=== PATIENT | female | born 1990 | race Caucasian/White ===

== ENCOUNTER 2016-04-11 21:02 | Emergency (ER) | payer SELFPAY ==
--- NOTE | 2016-04-11 21:59 | ER Document Report ---
ED Medical Screen (RME) - General Stated Complaint: EYE PAIN Time seen by provider: 21:57 Mode of Arrival: Ambulatory Information source: Patient Notes: 26-year-old noncontact lens wearer female woke up with a crusted right eyelashes with a itchy and watery right eye. She has children at home and so she wants to know if this pinkeye. She has a history of a right breast infection and her whole leaks pus since she had a baby 5 months ago. She is not breast-feeding. Not Taking any antibiotics right now. No fever. I have greeted and performed a rapid initial assessment of this patient. A comprehensive ED assessment, evaluation of the patient, analysis of test results , and completion of the medical decision making process will be conducted by additional ED providers. - Related Data Allergies/Adverse Reactions: Penicillins Allergy (Verified 03/05/11 20:03) Sulfa (Sulfonamide Antibiotics) Allergy (Verified 03/05/11 20:03) Past Medical History Pulmonary Medical History: Reports: Hx Asthma - Immunizations Immunizations up to date: Yes Hx Diphtheria, Pertussis, Tetanus Vaccination: Yes - 2010 Physical Exam - Vital signs Vitals: Temp Pulse Resp BP Pulse Ox 98.1 F 90 17 117/69 98 04/11/16 21:33 04/11/16 21:33 04/11/16 21:33 04/11/16 21:33 04/11/16 21:33 Course - Vital Signs Vital signs: Temp Pulse Resp BP Pulse Ox 98.1 F 90 17 117/69 98 04/11/16 21:33 04/11/16 21:33 04/11/16 21:33 04/11/16 21:33 04/11/16 21:33
--- NOTE | 2016-04-12 00:02 | ER Document Report ---
HPI - HPI Patient complains to provider of: eye irritation, nipple discharge Onset: Other - nipple discharge 4 months, eye irritation this am Severity: Mild Pain Level: 1 Context: Patient presents to the emergency department with complaints of her right eye irritating watery itchy and was crusted the same. Patient does have some discharge in the corner of her right eye. She denies vision problems. She does not wear contacts. No exposure to conjunctivitis that she knows. Patient also reports she has nipple discharge from her right breast. She reports she's had it for the past 4 months. She reports she had a baby 5 months ago and was told she had a a milk duct infection. She was treated with antibiotics. But she still has the discharge. She reports it hurts when she pushes on the area. Denies other symptoms such as fever vomiting diarrhea. Associated Symptoms: None Exacerbated by: Denies Relieved by: Denies Similar symptoms previously: Yes Recently seen / treated by doctor: No - REPRODUCTIVE LMP: 02-26-16 Reproductive: DENIES: : - DERM Skin Color: Normal Past Medical History - General Information source: Patient Last Menstrual Period: 02/26/16 irregular - Social History Smoking Status: Current Every Day Smoker Cigarette use (# per day): Yes Chew tobacco use (# tins/day): No Frequency of alcohol use: None Drug Abuse: None Lives with: Family Family History: Reviewed & Not Pertinent Patient has suicidal ideation: No Patient has homicidal ideation: No Pulmonary Medical History: Reports: Hx Asthma Renal/ Medical History: Denies: Hx Peritoneal Dialysis - Immunizations Immunizations up to date: Yes Hx Diphtheria, Pertussis, Tetanus Vaccination: Yes - 2010 Vertical Provider Document - CONSTITUTIONAL Agree With Documented VS: Yes Exam Limitations: No Limitations General Appearance: WD/WN, No Apparent Distress - INFECTION CONTROL TRAVEL OUTSIDE OF THE [place] IN LAST 30 DAYS: No - HEENT HEENT: Atraumatic, Normocephalic, PERRLA. negative: Conjuctival Injection - NECK Neck: Normal Inspection, Supple. negative: Lymphadenopathy-Left, Lymphadenopathy-Right - RESPIRATORY Respiratory: Breath Sounds Normal, Chest Non-Tender - reports nipple discharge out of right breast when squeezed. Patient squeezed her own breast and no discharge.. No erythema or warmth swelling or signs of infection noted Nipples intact no cracked or open wounds. O2 Sat by Pulse Oximetry: 98 - CARDIOVASCULAR Cardiovascular: Regular Rate - MUSCULOSKELETAL/EXTREMETIES Musculoskeletal/Extremeties: BONG, FROM - NEURO Level of Consciousness: Awake, Alert, Appropriate Motor/Sensory: No Motor Deficit - DERM Integumentary: Warm, Dry, No Rash Course - Re-evaluation Re-evalutation: 04/12/16 Patient will be treated for possible conjunctivitis with erythromycin. Patient was instructed on signs and symptoms of allergic reaction. Patient was also cautioned not to squeeze her breast. She was instructed to fu with a pcp or the health department. - Vital Signs Vital signs: Temp Pulse Resp BP Pulse Ox 98.1 F 90 17 117/69 98 04/11/16 21:33 04/11/16 21:33 04/11/16 21:33 04/11/16 21:33 04/11/16 21:33 Discharge - Discharge Clinical Impression: Irritation of right eye, Nipple discharge Condition: Stable Disposition: HOME, SELF-CARE Instructions: Family Physicians / Practices, Erythromycin (OM), Opthalmology, [facility] - [place], [place] Additional Instructions: *You have been evaluated for eye irritation, nipple discharge *Use eye ointment as prescribed- 1/2 inch ribbon to bottom lid three times a day for five days *Good hand washing- Do not reuse wash clothes or towels after wiping eyes *Follow up with an canvassing manager for recheck within one week *Follow up with the health department or a primary care provider for the nibble discharge *Return to ED for worsening condition, changes, needs
[2016-04-12] MEDS ORDERED: ERYTHROMYCIN 0.5% OPH OINTMENT 3.5 GM (ER DISP) OD ONE (00:21)
[2016-04-12 01:05] VITALS: BP 128/69
== END 2016-04-12 00:56 | disposition home or self-care (01) ==
LOC: ER 21:02
DX: N64.52 Nipple discharge (principal); H57.11 Ocular pain, right eye; F17.210 Nicotine dependence, cigarettes, uncomplicated
CPT/HCPCS: 99283

== ENCOUNTER 2016-05-11 23:57 | Emergency (ER) | payer SELFPAY ==
[2016-05-12 00:06] VITALS: BP 133/84
--- NOTE | 2016-05-12 00:25 | ER Document Report ---
ED General - General Chief Complaint: Abscess Stated Complaint: POSSIBLE ABSCESS Notes: Patient presents with 2 weeks of progressively worsening pain in her right axilla. Describes the area is a small lump that is getting progressively larger over the last 2 weeks. States she's had axillary abscesses in the past that required drainage. Pain is described as a constant, dull, throbbing pain. Touching the area worsens the pain. Nothing improves the pain. She has not seen her primary care doctor regarding today's concerns. No constitutional symptoms or fever. TRAVEL OUTSIDE OF THE [place] IN LAST 30 DAYS: No - Related Data Allergies/Adverse Reactions: Penicillins Allergy (Verified 05/12/16 00:06) Sulfa (Sulfonamide Antibiotics) Allergy (Verified 05/12/16 00:06) Past Medical History - Social History Smoking Status: Never Smoker Frequency of alcohol use: None Drug Abuse: None Lives with: Family Family History: Reviewed & Not Pertinent Patient has suicidal ideation: No Patient has homicidal ideation: No Pulmonary Medical History: Reports: Hx Asthma Renal/ Medical History: Denies: Hx Peritoneal Dialysis - Immunizations Immunizations up to date: Yes Hx Diphtheria, Pertussis, Tetanus Vaccination: Yes - 2010 Review of Systems - Review of Systems Notes: Constitutional: Negative for fever. Cardiovascular: Negative for chest pain. Respiratory: Negative for shortness of breath. Gastrointestinal: Negative for vomiting Musculoskeletal: Negative for back pain. Skin: Positive for axillary abscess Neurological: Negative for weakness or numbness. 10 point ROS negative except as marked above and in HPI. Physical Exam - Vital signs Vitals: Temp Pulse Resp BP Pulse Ox 98.4 F 94 16 133/84 H 97 05/12/16 00:01 05/12/16 00:01 05/12/16 00:01 05/12/16 00:01 05/12/16 00:01 Interpretation: Normal Notes: PHYSICAL EXAMINATION: GENERAL: Well-appearing, well-nourished and in no acute distress. HEAD: Atraumatic, normocephalic. EYES: sclera anicteric, conjunctiva are normal. ENT: Moist mucous membranes. NECK: Normal range of motion LUNGS: Normal work of breathing HEART: 2+ radial pulses bilaterally EXTREMITIES: no pitting or edema. No cyanosis. NEUROLOGICAL: No focal neurological deficits. Moves all extremities spontaneously and on command. PSYCH: Normal mood, normal affect. SKIN: Warm, Dry, normal turgor, 0.5cm X0.5cm abscess in the right axilla without surrounding erythema Course - Re-evaluation Re-evalutation: 05/12/16 01:07 Patient presents with a small right axillary abscess which was incised and drained the bedside without difficulty. No surrounding cellulitis. Patient is otherwise very well in appearance.At this time will discharge with return precautions and follow-up recommendations. Verbal discharge instructions given a the bedside and opportunity for questions given. Medication warnings reviewed. Patient is in agreement with this plan and has verbalized understanding of return precautions and the need for primary care follow-up in the next 24-72 hours. - Vital Signs Vital signs: Temp Pulse Resp BP Pulse Ox 98.4 F 94 16 133/84 H 97 05/12/16 00:01 05/12/16 00:01 05/12/16 00:01 05/12/16 00:01 05/12/16 00:01 Discharge - Discharge Clinical Impression: Axillary abscess Condition: Good Disposition: HOME, SELF-CARE Additional Instructions: You were seen for an abscess that required drainage. Please clean this area with soap and water twice daily and apply a topical antibiotic. Dress the area after each cleaning. Please return if you develop fever, vomiting, the pain at the site worsens, you notice spreading redness from the area, or you have any other symptoms that are concerning to you.
[2016-05-12] MEDS ORDERED: ACETAMINOPHEN 325 MG TABLET PO ONE (01:00)
[2016-05-12] MEDS ORDERED: ACETAMINOPHEN 325 MG TABLET ONE (01:03)
== END 2016-05-12 01:08 | disposition home or self-care (01) ==
LOC: ER 23:57
PROC: 0H9BXZZ Drainage of Right Upper Arm Skin, External Approach (ICD-10-PCS; principal; 2016-05-11)
DX: L02.411 Cutaneous abscess of right axilla (principal); Z88.0 Allergy status to penicillin; Z88.2 Allergy status to sulfonamides; J45.909 Unspecified asthma, uncomplicated
CPT/HCPCS: 99283

== ENCOUNTER 2016-05-29 20:15 | Emergency (ER) | payer SELFPAY ==
[2016-05-29] MEDS ORDERED: DOXYCYCLINE HYCLATE 100 MG TABLET PO ONE (23:19)
--- NOTE | 2016-05-29 23:19 | ER Document Report ---
ED Skin Rash/Insect Bite/Abscs - General Chief Complaint: Possible abscess under R arm Stated Complaint: PAIN UNDER RIGHT ARM Notes: The patient is a 26 yo old female, past medical history frequent right axilla abscesses, presents with mild pain and swelling below her right axilla. She had an abscess drained a few weeks ago, but cannot follow-up with the surgeon due to lack of insurance. She denies fevers, numbness, tingling or other wounds. TRAVEL OUTSIDE OF THE [place] IN LAST 30 DAYS: No - Related Data Allergies/Adverse Reactions: Penicillins Allergy (Verified 05/29/16 23:02) Sulfa (Sulfonamide Antibiotics) Allergy (Verified 05/29/16 23:02) Past Medical History - General Information source: Patient - Social History Smoking Status: Current Every Day Smoker Frequency of alcohol use: None Drug Abuse: None Family History: Reviewed & Not Pertinent Pulmonary Medical History: Reports: Hx Asthma Renal/ Medical History: Denies: Hx Peritoneal Dialysis Surgical Hx: Negative - Immunizations Immunizations up to date: Yes Hx Diphtheria, Pertussis, Tetanus Vaccination: Yes - 2010 Review of Systems - Review of Systems Notes: REVIEW OF SYSTEMS: CONSTITUTIONAL: -fevers, -chills EENT: -eye pain, -difficulty swallowing, -nasal congestion CARDIOVASCULAR:-chest pain, -syncope. RESPIRATORY: -cough, -SOB GASTROINTESTINAL: -abdominal pain, - nausea, -vomiting, -diarrhea GENITOURINARY: -dysuria, -hematuria MUSCULOSKELETAL: -back pain, -neck pain SKIN: +right axilla abscesses HEMATOLOGIC: -easy bruising or bleeding. LYMPHATIC: -swollen, enlarged glands. NEUROLOGICAL: -altered mental status or loss of consciousness, -headache, - neurologic symptoms PSYCHIATRIC: -anxiety, -depression. ALL OTHER SYSTEMS REVIEWED AND NEGATIVE. Physical Exam - Vital signs Vitals: Temp Pulse Resp BP Pulse Ox 98.6 F 104 H 19 131/83 H 97 05/29/16 20:31 05/29/16 20:31 05/29/16 20:31 05/29/16 20:31 05/29/16 20:31 - Notes Notes: PHYSICAL EXAMINATION: GENERAL: Well-appearing, well-nourished and in no acute distress. HEAD: Atraumatic, normocephalic. EYES: Pupils equal round and reactive to light, extraocular movements intact, sclera anicteric, conjunctiva are normal. ENT: nares patent, oropharynx clear without exudates. Moist mucous membranes. NECK: Normal range of motion, supple without lymphadenopathy LUNGS: Breath sounds clear to auscultation bilaterally and equal. No wheezes rales or rhonchi. HEART: Regular rate and rhythm without murmurs ABDOMEN: Soft, nontender, normoactive bowel sounds. No guarding, no rebound. No masses appreciated. EXTREMITIES: Normal range of motion, no pitting or edema. No cyanosis. NEUROLOGICAL: Cranial nerves grossly intact. Normal speech, normal gait. Normal sensory, motor, and reflex exams. PSYCH: Normal mood, normal affect. SKIN: Right axilla with 1 cm deep abscess and 0.5 cm deep abscess, mild erythema around abscesses Course - Re-evaluation Re-evalutation: Patient with deep abscesses in right axilla. Expressed to patient that due to the small size and depth of the abscesses that an I&D may not be very fruitful. Still offered an I&D, but patient says she would like to try warm compresses. Will also send her home with antibiotics. Given return instructions. - Vital Signs Vital signs: Temp Pulse Resp BP Pulse Ox 97.8 F 85 16 175/60 H 97 05/29/16 23:30 05/29/16 23:30 05/29/16 23:30 05/29/16 23:30 05/29/16 20:31 Discharge - Discharge Clinical Impression: Abscess of right axilla Condition: Good Disposition: HOME, SELF-CARE Additional Instructions: ABSCESS: You have an abscess (boil). This a pus-forming infection, usually due to staph. Some boils may be left to drain on their own, but most require lancing. From the time the tender lump first appears, it may be three or four days before the abscess is ready to amrita. Local heat and rest help at this stage of treatment. An antibiotic may prevent spread of the infection. Once the abscess is opened, packing may be placed into it. This is done so pus is not sealed inside by premature closure of the cavity. The packing will be removed at your follow-up visit or you may be advised to remove it yourself at home. Sometimes this packing must be replaced a few times during healing. The wound will heal with surprisingly little scar. Depending on the size and location of an abscess, healing can take one to four weeks. You may shower and wash the area around the incision site two or three times a day. Antibiotics may be prescribed, but are usually not necessary after an abscess has been drained. If you develop fever, chills, worsening pain, or increasing swelling in the area, call the doctor or return immediately. MRSA CELLULITIS: You have an infection of your skin and underlying soft tissues called cellulitis. This is due to bacteria, which can enter through any break in the skin, or even through an irritated hair follicle. Untreated, cellulitis will usually worsen and may form an abscess which requires draining. Although many bacterial organisms can cause cellulitis and abscess formations, the most likely bacteria is Methicillin-Resistant Staph Aureus, or MRSA for short. Antibiotics are required. Usually, warm packs or warm soaks, and elevation of the infected area are recommended. You should start getting better within 24 to 36 hours. Most infections respond quickly to the right medication. Follow-up care is important, however, to check for abscess (boil) formation, unsuspected foreign body, or resistant infection. If you develop fever, chills, or if the area of infection is becoming rapidly more swollen or painful, call the doctor at once. ORAL NARCOTIC MEDICATION: You have been given a prescription for pain control. This medication is a narcotic. It's best taken with food, as nausea can result if taken on an empty stomach. Don't operate machinery or drive within six hours of taking this medication. Do not combine this medicine with alcohol, or with any medication which can cause sedation (such as cold tablets or sleeping pills) unless you get permission from the physician. Narcotics tend to cause constipation. If possible, drink plenty of fluids and eat a diet high in fiber and fruits. FOLLOW-UP CARE: Most simple abscesses will not require a follow up visit. If you had packing placed in the abscess, remove it as instructed by the physician. If you have been referred to a physician for follow-up care, call the physicians office for an appointment as you were instructed or within the next two days. If you experience worsening or a significant change in your symptoms, return to the Emergency Department at any time for re-evaluation. Prescriptions: Acetaminophen with Codeine [Tylenol #3 Tablet] 1 each PO Q4HP PRN #10 tablet PRN Reason: Doxycycline Hyclate 100 mg PO BID #14 capsule Referrals: GABRIELA SNYDER MD [ACTIVE STAFF] - Follow up as needed
[2016-05-30] MEDS: ACETAMINOPHEN WITH CODEINE #3 TABLET PO ONE (00:10)
[2016-05-30 00:18] VITALS: BP 175/60
== END 2016-05-30 00:18 | disposition home or self-care (01) ==
LOC: ER 20:15
DX: L02.411 Cutaneous abscess of right axilla (principal); M79.601 Pain in right arm; F17.200 Nicotine dependence, unspecified, uncomplicated; Z88.0 Allergy status to penicillin; Z88.2 Allergy status to sulfonamides
CPT/HCPCS: 99282

== ENCOUNTER 2016-06-11 20:24 | Emergency (ER) | payer SELFPAY ==
--- NOTE | 2016-06-11 20:51 | ER Document Report ---
ED Medical Screen (RME) - General Chief Complaint: Chest Pain Stated Complaint: CHEST PAIN Time seen by provider: 20:50 Mode of Arrival: Ambulatory Information source: Patient Notes: This is a 26-year-old female that presents to the emergency room with sharp shooting pain behind her eyes and in her neck sometimes in her chest. She denies any shortness of breath. She is on control and she does smoke. She denies any calf tenderness. She states it's been going on constantly for the past 3 days. She denies any exertional discomfort. The symptoms seem to be worse with positional changes. TRAVEL OUTSIDE OF THE [place] IN LAST 30 DAYS: No - Related Data Allergies/Adverse Reactions: Penicillins Allergy (Verified 06/11/16 20:37) Sulfa (Sulfonamide Antibiotics) Allergy (Verified 06/11/16 20:37) Past Medical History Pulmonary Medical History: Reports: Hx Asthma Renal/ Medical History: Denies: Hx Peritoneal Dialysis - Immunizations Immunizations up to date: Yes Hx Diphtheria, Pertussis, Tetanus Vaccination: Yes - 2010 Physical Exam - Vital signs Vitals: Temp Pulse Resp BP Pulse Ox 98.2 F 109 H 16 129/81 H 97 06/11/16 20:34 06/11/16 20:34 06/11/16 20:34 06/11/16 20:34 06/11/16 20:34 Course - Vital Signs Vital signs: Temp Pulse Resp BP Pulse Ox 98.2 F 109 H 16 129/81 H 97 06/11/16 20:34 06/11/16 20:34 06/11/16 20:34 06/11/16 20:34 06/11/16 20:34
[2016-06-11 21:11] LABS: ABSOLUTE BASOPHILS # (AUTO) 0.1 10^3/uL (0.0-0.2); ABSOLUTE EOSINOPHILS # (AUTO) 0.1 10^3/uL (0.0-0.6); ABSOLUTE LYMPHOCYTES (AUTO) 3.4 10^3/uL (0.5-4.7); ABSOLUTE MONOCYTES (AUTO) 0.6 10^3/uL (0.1-1.4); ABSOLUTE NEUT (AUTO) 8.8 10^3/uL (1.7-8.2); BASOPHILS % (AUTO) 0.7 % (0-2); EOSINOPHILS % (AUTO) 0.8 % (0-6); HEMATOCRIT 42.8 % (36.0-47.0); HEMOGLOBIN 14.6 g/dL (12.0-15.5); LYMPHOCYTES % (AUTO) 25.9 % (13-45); MEAN CORPUSCULAR VOLUME 85 fl (80-97); MONOCYTES % (AUTO) 4.7 % (3-13); RED BLOOD COUNT 5.02 10^6/uL (3.72-5.28); RED CELL DISTRIBUTION WIDTH 15.2 % (11.5-14.0); SEGMENTED NEUTROPHILS % (AUTO) 67.9 % (42-78)
[2016-06-11 21:15] LABS: APPEARANCE,URINE CLEAR; BILIRUBIN,URINE NEGATIVE (NEGATIVE); GLUCOSE, URINE NEGATIVE (NEGATIVE); KETONES,URINE NEGATIVE (NEGATIVE); LEUKOCYTE ESTERASE,URINE NEGATIVE (NEGATIVE); NITRITE,URINE NEGATIVE (NEGATIVE); PROTEIN,URINE NEGATIVE (NEGATIVE); URINE SPECIFIC GRAVITY 1.019; UROBILINOGEN,URINE NEGATIVE mg/dL (<2.0)
[2016-06-11 21:30] LABS: ALANINE AMINOTRANSFERASE 33 U/L (9-52); ALBUMIN 4.3 g/dL (3.5-5.0); ALKALINE PHOSPHATASE 76 U/L (38-126); ANION GAP 14 (5-19); ASPARTATE AMINO TRANSFERASE 19 U/L (14-36); BILIRUBIN,DIRECT 0.2 mg/dL (0.0-0.4); BILIRUBIN,TOTAL 0.2 mg/dL (0.2-1.3); BLOOD UREA NITROGEN 13 mg/dL (7-20); CALCIUM 10.3 mg/dL (8.4-10.2); CARBON DIOXIDE 24 mmol/L (22-30); CHLORIDE 104 mmol/L (98-107); CREATININE RESULT 0.64 mg/dL (0.52-1.25); GLUCOSE 107 mg/dL (75-110); POTASSIUM 4.1 mmol/L (3.6-5.0); SODIUM 142.2 mmol/L (137-145); TOTAL PROTEIN 6.9 g/dL (6.3-8.2)
--- NOTE | 2016-06-11 22:01 | ER Document Report ---
ED General - General Chief Complaint: Chest Pain Stated Complaint: CHEST PAIN Mode of Arrival: Ambulatory Notes: Patient is a 26 old female presents for complaint of a few different symptoms have been on going for 3 days. Patient says that she will have sudden "jolts" of sharp pain that occurred going up her neck and back behind her eye. She says symptoms occur with certain movements of her head. Says sometimes it can occur randomly. She also says sometimes the pain will radiate back down into her right upper chest. She denies any injuries or traumas. She says that once or twice she was talking "out of her head" to her . No focal weakness or numbness. No vomiting. No fevers. No infections. No other complaints this time. She never had these symptoms before. TRAVEL OUTSIDE OF THE [place] IN LAST 30 DAYS: No - Related Data Allergies/Adverse Reactions: Penicillins Allergy (Verified 06/11/16 20:37) Sulfa (Sulfonamide Antibiotics) Allergy (Verified 06/11/16 20:37) Past Medical History - General Information source: Patient - Social History Smoking Status: Never Smoker Frequency of alcohol use: None Drug Abuse: None Family History: Reviewed & Not Pertinent Patient has suicidal ideation: No Patient has homicidal ideation: No Pulmonary Medical History: Reports: Hx Asthma Renal/ Medical History: Denies: Hx Peritoneal Dialysis - Immunizations Immunizations up to date: Yes Hx Diphtheria, Pertussis, Tetanus Vaccination: Yes - 2010 Review of Systems - Review of Systems Notes: My Normal Review Basic REVIEW OF SYSTEMS: CONSTITUTIONAL : Denies fever, chills, or sweats. Denies recent illness. EENT: Denies eye, ear, throat, or mouth pain or symptoms. Denies nasal or sinus congestion. RESPIRATORY: Denies cough, cold, or chest congestion. Denies shortness of breath, difficulty breathing, or wheezing. GASTROINTESTINAL: Denies abdominal pain. Denies nausea, vomiting, or diarrhea. Denies constipation. Last BM: MUSCULOSKELETAL: Neck pain SKIN: Denies rash or skin lesions. HEMATOLOGIC : Denies easy bruising or bleeding. LYMPHATIC: Denies swollen, enlarged glands. NEUROLOGICAL: Denies altered mental status or loss of consciousness. Pain radiating up neck to behind the eyes.. Denies weakness or paralysis or loss of use of either side. Denies problems with gait or speech. Denies sensory or motor loss. ALL OTHER SYSTEMS REVIEWED AND NEGATIVE. Physical Exam - Vital signs Vitals: Temp Pulse Resp BP Pulse Ox 98.2 F 109 H 16 129/81 H 97 06/11/16 20:34 06/11/16 20:34 06/11/16 20:34 06/11/16 20:34 06/11/16 20:34 - Notes Notes: General Appearance: Well nourished, alert, cooperative, no acute distress, no obvious discomfort. Well-appearing. Vitals: reviewed, See vital signs table. Head: no swelling or tenderness to the head Eyes: PERRL, EOMI, Conjuctiva clear Mouth: No decreasd moisturey Neck: Supple, no neck tenderness, I cannot reproduce patient's pain with movement of the neck or palpation. Lungs: No wheezing, No rales, No rhonci, No accessory muscle use, good air exchange bilaterally. Heart: Normal rate, Regular rythm, No murmur, no rub Chest wall: No pain to palpation of the chest wall. Abdomen: Normal BS, soft, No rigidity, No abdominal tenderness, No guarding, no rebound, no abdominal masses, no organomegaly Extremities: strength 5/5 in all extremities, good pulses in all extremities, no swelling or tenderness in the extremities, no edema. Skin: warm, dry, appropriate color, no rash Neuro: speech clear, oriented x 3, normal affect, responds appropriately to questions. Cranial nerves II through XII are intact. Distal sensation intact. Normal gait. Normal Romberg. Course - Vital Signs Vital signs: Temp Pulse Resp BP Pulse Ox 98.2 F 109 H 16 129/81 H 97 06/11/16 20:34 06/11/16 20:34 06/11/16 20:34 06/11/16 20:34 06/11/16 20:34 - Laboratory Result Diagrams: 06/11/16 20:55 06/11/16 20:55 Laboratory results interpreted by me: 06/11/16 06/11/16 06/11/16 20:55 20:55 21:00 WBC 13.0 H RDW 15.2 H Absolute Neutrophils 8.8 H Calcium 10.3 H Urine Blood SMALL H - EKG Interpretation by Me Additional EKG results interpreted by me: 06/11/16 22:01 EKG is reviewed and interpreted by me. EKG shows sinus tachycardia with rate of [address] segment elevation or depression. Ischemic T-wave inversions. [place] interval, QRS duration, QTC also are within normal range. No old EKG available for comparison. - Transfer of Care Notes: 06/11/16 23:30 Exact cause of the patient's pain is not clear. Seems to be musculoskeletal or possibly pinched nerve being that it is sudden jolts of pain that are sometimes gas me by certain movements. I did obtain a CTA of the neck because the patient had mentioned that at times she does feel dizzy at times has had episodes where she feels like she is not talking appropriately. CTA is negative. Is no evidence of vertebral artery dissection. She looks well. She is neurologically intact at this time. I feel she is safe to be discharged home. I encourage her to return to ER shows worsening of her symptoms or feels unwell. Patient agrees with plan will be discharged home. Dictation of this chart was performed using voice recognition software; therefore, there may be some unintended grammatical errors. Discharge - Discharge Clinical Impression: Neck pain Chest pain Qualifiers: Chest pain type: unspecified Qualified Code(s): R07.9 - Chest pain, unspecified Condition: Good Disposition: HOME, SELF-CARE Additional Instructions: Please follow up closely with your primary care doctor within 1 week for reevaluation. Please return to the ER immediately if you have worsening of your symptoms, fevers, continuous pain, or any weakness or numbness into her arms or legs.
[2016-06-11 23:57] VITALS: BP 122/74
== END 2016-06-11 23:57 | disposition home or self-care (01) ==
LOC: ER 20:24
DX: R07.9 Chest pain, unspecified (principal); M54.2 Cervicalgia; R51 Headache; R42 Dizziness and giddiness; J45.909 Unspecified asthma, uncomplicated; R00.0 Tachycardia, unspecified; Z88.0 Allergy status to penicillin; Z88.2 Allergy status to sulfonamides
CPT/HCPCS: 36415; 70496; 70498; 71020; 80053; 81001; 84702; 85025; 99285

== ENCOUNTER 2016-08-16 00:51 | Emergency (ER) | payer SELFPAY ==
[2016-08-16] MEDS ORDERED: LIDOCAINE 5% (700 MG) TRANSDERMAL ADH..PATCH TP ONE (07:04)
[2016-08-16] MEDS ORDERED: DOXYCYCLINE HYCLATE 100 MG TABLET PO ONE (07:06)
--- NOTE | 2016-08-16 07:08 | ER Document Report ---
ED General - General Chief Complaint: Abscess Stated Complaint: POSSIBLE ABSCESS Time Seen by Provider: 08/16/16 06:10 TRAVEL OUTSIDE OF THE [place] IN LAST 30 DAYS: No - HPI Patient complains to provider of: Possible abscess Notes: Patient coming in for evaluation of possible abscess on the right lower quadrant of the abdomen. Patient states present for the last 3 days with some drainage. Patient denies any instrumentation of the area by herself denies fevers chills nausea vomiting. Patient is well-hydrated nontoxic looking upon my evaluation - Related Data Allergies/Adverse Reactions: Penicillins Allergy (Verified 08/16/16 00:58) Sulfa (Sulfonamide Antibiotics) Allergy (Verified 08/16/16 00:58) Past Medical History - Social History Smoking Status: Unknown if Ever Smoked Family History: Reviewed & Not Pertinent Pulmonary Medical History: Reports: Hx Asthma Renal/ Medical History: Denies: Hx Peritoneal Dialysis - Immunizations Immunizations up to date: Yes Hx Diphtheria, Pertussis, Tetanus Vaccination: Yes - 2010 Review of Systems - Review of Systems Constitutional: No symptoms reported EENT: No symptoms reported Cardiovascular: No symptoms reported Respiratory: No symptoms reported Gastrointestinal: No symptoms reported Genitourinary: No symptoms reported Female Genitourinary: No symptoms reported Musculoskeletal: No symptoms reported Skin: Other - abscess Hematologic/Lymphatic: No symptoms reported Neurological/Psychological: No symptoms reported -: Yes All other systems reviewed and negative Physical Exam - Vital signs Vitals: Temp Pulse Resp BP Pulse Ox 98.3 F 106 H 20 126/69 H 94 08/16/16 00:57 08/16/16 00:57 08/16/16 00:57 08/16/16 00:57 08/16/16 00:57 Interpretation: Normal - General General appearance: Appears well, Alert - HEENT Head: Normocephalic, Atraumatic Eyes: Normal Pupils: PERRL - Respiratory Respiratory status: No respiratory distress Chest status: Nontender Breath sounds: Normal Chest palpation: Normal - Cardiovascular Rhythm: Regular Heart sounds: Normal auscultation Murmur: No - Abdominal Inspection: Normal Distension: No distension Bowel sounds: Normal Tenderness: Nontender Organomegaly: No organomegaly Notes: Patient with an area on the left lower quadrant raised erythematous looks to be almost like a keloid formation however erythema concerning for an abscess. Bedside ultrasound did not show any drainable fluid - Back Back: Normal, Nontender - Extremities General upper extremity: Normal inspection, Nontender, Normal color, Normal ROM , Normal temperature General lower extremity: Normal inspection, Nontender, Normal color, Normal ROM , Normal temperature, Normal weight bearing. No: Flavio's sign - Neurological Neuro grossly intact: Yes Cognition: Normal Orientation: AAOx4 Tisha Coma Scale Eye Opening: Spontaneous [place] Coma Scale Verbal: Oriented [place] Coma Scale Motor: Obeys Commands Tisha Coma Scale Total: 15 Speech: Normal Motor strength normal: LUE, RUE, LLE, RLE Sensory: Normal - Psychological Associated symptoms: Normal affect, Normal mood - Skin Skin Temperature: Warm Skin Moisture: Dry Skin Color: Normal Course - Re-evaluation Re-evalutation: 08/16/16 12:31 Patient with possible keloid formation scar tissue versus skin infection on the right lower quadrant of the abdomen. There is no drainable abscess at this time will cover the patient with 7 days of doxycycline. Patient will be discharged home to follow primary care physician. - Vital Signs Vital signs: Temp Pulse Resp BP Pulse Ox 97.7 F 75 17 119/76 98 08/16/16 07:31 08/16/16 07:31 08/16/16 07:31 08/16/16 07:31 08/16/16 07:31 Discharge - Discharge Clinical Impression: Skin infection Condition: Good Disposition: HOME, SELF-CARE Instructions: Cellulitis ([facility]) Additional Instructions: There is no signs of any abscess formation more likely you have a Small area of cellulitiswe will treat this with doxycycline for the next 7 days take medication as prescribed Tylenol Motrin for pain control. May place warm compresses on the area to as well. Prescriptions: Doxycycline Hyclate 100 mg PO BID #14 capsule Forms: Return to Work
[2016-08-16 07:34] VITALS: BP 119/76
== END 2016-08-16 07:36 | disposition home or self-care (01) ==
LOC: ER 00:51
DX: L08.9 Local infection of the skin and subcutaneous tissue, unspecified (principal); J45.909 Unspecified asthma, uncomplicated; Z88.2 Allergy status to sulfonamides; Z88.0 Allergy status to penicillin
CPT/HCPCS: 99282

== ENCOUNTER 2016-10-01 09:30 | Emergency (ER) | payer SELFPAY ==
--- NOTE | 2016-10-01 09:42 | ER Document Report ---
HPI - HPI Patient complains to provider of: right groin abscess Onset: Last week Onset/Duration: Gradual Pain Level: 3 Context: 26-year-old female with a history of abscess but not MRSA is complaining of increased swelling and pain. No fever or chills. Associated Symptoms: None Exacerbated by: Movement Relieved by: Denies - ROS ROS below otherwise negative: Yes Systems Reviewed and Negative: Yes All other systems reviewed and negative - REPRODUCTIVE Reproductive: DENIES: : - DERM Skin Color: Normal Past Medical History - General Information source: Patient - Social History Smoking Status: Unknown if Ever Smoked Frequency of alcohol use: None Drug Abuse: None Lives with: Family Family History: Reviewed & Not Pertinent Patient has suicidal ideation: No Patient has homicidal ideation: No - Medical History Medical History: Negative Pulmonary Medical History: Reports: Hx Asthma Renal/ Medical History: Denies: Hx Peritoneal Dialysis Surgical Hx: Negative - Immunizations Immunizations up to date: Yes Hx Diphtheria, Pertussis, Tetanus Vaccination: Yes - 2010 [employer] Provider Document - CONSTITUTIONAL Agree With Documented VS: Yes Exam Limitations: No Limitations General Appearance: No Apparent Distress - INFECTION CONTROL TRAVEL OUTSIDE OF THE [place] IN LAST 30 DAYS: No - HEENT HEENT: Normocephalic - NECK Neck: Supple - RESPIRATORY O2 Sat by Pulse Oximetry: 97 - MUSCULOSKELETAL/EXTREMETIES Musculoskeletal/Extremeties: NAYA WOODY - NEURO Level of Consciousness: Awake, Alert, Appropriate - DERM Integumentary: Abscess - right inquinal fold, fluctuant, not red Course - Vital Signs Vital signs: Temp Pulse Resp BP Pulse Ox 98.0 F 103 H 20 131/84 H 97 10/01/16 09:33 10/01/16 09:33 10/01/16 09:33 10/01/16 09:33 10/01/16 09:33 Procedures - Incision and Drainage Right Groin Time completed: 10:43 Type: Simple Anesthetic type: 1% Lidocaine mL's of anesthetic: 3 Blade size: 11 I&D procedure: Betadine prep applied Incision Method: Incision made by scalpel Amount/type of drainage: large pus Discharge - Discharge Clinical Impression: Right groin abscess I&D Condition: Good Disposition: HOME, SELF-CARE Instructions: Acetaminophen, Use of [id number]-Isb-Lgwmerc Ibuprofen ([facility]), Post Incision and Drainage, Ultram ([facility]) Additional Instructions: warm compress keep the original dressing in place for 2 days to er if any worsening of the symptoms, fever, any concerns Please complete the patient satisfaction survey if you get one, and return it.. If you do not receive a survey, then you can go to the [facility] website, [email or web address] and place your comments about your very good care. Thank you very much. It was a pleasure being your medical provider today. Prescriptions: Clindamycin HCl [Cleocin 150 mg Capsule] 300 mg PO TID #42 capsule Tramadol HCl [Ultram 50 mg Tablet] 50 mg PO ASDIR PRN #15 tablet PRN Reason: Forms: Return to Work
[2016-10-01] MEDS ORDERED: LIDOCAINE 4%/TETRACAINE 0.5%/EPI 0.18% 5 ML TOPICAL SOLN TOP ONE (09:50)
[2016-10-01] MEDS ORDERED: IBUPROFEN 800 MG TABLET PO ONE (09:51)
[2016-10-01] MEDS ORDERED: CLINDAMYCIN HCL 150 MG CAPSULE PO ONE (09:51)
[2016-10-01 11:01] VITALS: BP 121/90
== END 2016-10-01 10:58 | disposition home or self-care (01) ==
LOC: ER 09:30
PROC: 0H97XZZ Drainage of Abdomen Skin, External Approach (ICD-10-PCS; principal; 2016-10-01)
DX: L02.214 Cutaneous abscess of groin (principal)
CPT/HCPCS: 99283; 10060; J3490

== ENCOUNTER 2016-10-07 12:38 | Emergency (ER) | payer BC ==
--- NOTE | 2016-10-07 13:06 | ER Document Report ---
ED General - General Chief Complaint: Flu Symptoms Stated Complaint: FLU LIKE SYMPTOMS Time Seen by Provider: 10/07/16 12:57 Mode of Arrival: Ambulatory Information source: Patient Notes: 26-year-old female presents with complaints of diarrhea congestion productive cough green sputum with generalized body aches and sore throat. Patient denies any urinary complaints denies any abdominal pain, denies any DVT or PE risk factors TRAVEL OUTSIDE OF THE [place] IN LAST 30 DAYS: No - HPI Onset: Last week Onset/Duration: Persistent Quality of pain: Achy Severity: Mild Pain Level: 1 Associated symptoms: Productive cough, Fever, Sinus pain/drainage Exacerbated by: Denies Relieved by: Denies Similar symptoms previously: No Recently seen / treated by doctor: No - Related Data Allergies/Adverse Reactions: Penicillins Allergy (Verified 10/01/16 09:33) Sulfa (Sulfonamide Antibiotics) Allergy (Verified 10/01/16 09:33) Past Medical History - Social History Smoking Status: Current Every Day Smoker Cigarette use (# per day): Yes Chew tobacco use (# tins/day): No Smoking Education Provided: Yes - Patient counselled regarding cessation for 4 minutes Patient counselled reg Frequency of alcohol use: Rare Drug Abuse: None Family History: Reviewed & Not Pertinent Pulmonary Medical History: Reports: Hx Asthma Renal/ Medical History: Denies: Hx Peritoneal Dialysis Surgical Hx: Negative - Immunizations Immunizations up to date: Yes Hx Diphtheria, Pertussis, Tetanus Vaccination: Yes - 2010 Review of Systems - Review of Systems Notes: REVIEW OF SYSTEMS: CONSTITUTIONAL : Denies fever, chills, or sweats. Denies recent illness. EENT: Admits nasal congestion CARDIOVASCULAR: Denies chest pain. Denies palpitations or racing or irregular heart beat. Denies ankle edema. RESPIRATORY: Admits to productive cough GASTROINTESTINAL: Admits to diarrhea GENITOURINARY: Denies difficulty urinating, painful urination, burning, frequency, blood in urine, or discharge. MUSCULOSKELETAL: Denies back or neck pain or stiffness. Denies joint pain or swelling. SKIN: Denies rash, lesions or sores. HEMATOLOGIC : Denies easy bruising or bleeding. LYMPHATIC: Denies swollen, enlarged glands. NEUROLOGICAL: Denies confusion or altered mental status. Denies passing out or loss of consciousness. Denies dizziness or lightheadedness. Denies headache. Denies weakness or paralysis or loss of use of either side. Denies problems with gait or speech. Denies sensory loss, numbness, or tingling. Denies seizures. PSYCHIATRIC: Denies anxiety or stress. Denies depression, suicidal ideation, or homicidal ideation. ALL OTHER SYSTEMS REVIEWED AND NEGATIVE. Dictation was performed using [employer] voice recognition software PHYSICAL EXAMINATION: GENERAL: Well-appearing, well-nourished and in no acute distress. HEAD: Atraumatic, normocephalic. Frontal sinus tenderness on palpation EYES: Pupils equal round and reactive to light, extraocular movements intact, sclera anicteric, conjunctiva are normal. ENT: Nares patent, oropharynx clear without exudates. Moist mucous membranes. NECK: Normal range of motion, supple without lymphadenopathy LUNGS: Breath sounds clear to auscultation bilaterally and equal. No wheezes rales or rhonchi. HEART: Regular rate and rhythm without murmurs ABDOMEN: Soft, nontender, nondistended abdomen. No guarding, no rebound. No masses appreciated. Musculoskeletal: Normal range of motion, no pitting or edema. No cyanosis. NEUROLOGICAL: Cranial nerves grossly intact. Normal speech, normal gait. Normal sensory, motor exams PSYCH: Normal mood, normal affect. SKIN: Warm, Dry, normal turgor, no rashes or lesions noted. Physical Exam - Vital signs Vitals: Temp Pulse Resp BP Pulse Ox 98.6 F 114 H 16 136/83 H 97 10/07/16 12:39 10/07/16 12:39 10/07/16 12:39 10/07/16 12:39 10/07/16 12:39 Course - Re-evaluation Re-evalutation: 10/07/16 13:59 On evaluation patient's in no distress was initially tachycardic which has since resolved. Patient labwork imaging noted no acute abnormality however I believe patient may have a sinus infection given that is ongoing now for a couple weeks has been tender with thick nasal drainage After performing a Medical Screening Examination, I estimate there is LOW risk for ACUTE CORONARY SYNDROME, RESPIRATORY FAILURE, SEPSIS OR MENINGITIS, thus I consider the discharge disposition reasonable. I have reevaluated this patient multiple times and no significant life threatening changes are noted. The patient and I have discussed the diagnosis and risks, and we agree with discharging home with close follow-up. We also discussed returning to the Emergency Department immediately if new or worsening symptoms occur. We have discussed the symptoms which are most concerning (e.g., changing or worsening pain, trouble swallowing or breathing, neck stiffness, fever) that necessitate immediate return. - Vital Signs Vital signs: Temp Pulse Resp BP Pulse Ox 98.6 F 114 H 16 136/83 H 97 10/07/16 12:39 10/07/16 12:39 10/07/16 12:39 10/07/16 12:39 10/07/16 12:39 Discharge - Discharge Clinical Impression: Body aches, Encounter for smoking cessation counseling Sinusitis Qualifiers: Sinusitis location: frontal Chronicity: acute Recurrence: non-recurrent Qualified Code(s): J01.10 - Acute frontal sinusitis, unspecified Condition: Stable Disposition: HOME, SELF-CARE Instructions: Sinusitis ([facility]) Additional Instructions: Follow up with your physician tomorrow for further care or return to the ED IMMEDIATELY if symptoms worsen or new concerns occur. If you cannot afford to follow up with your primary care physician a list of low cost clinics have been provided at the end of your discharge papers as well. Prescriptions: Azithromycin 250 mg PO ASDIR PRN #6 tablet PRN Reason: Forms: Smoking Cessation Education
--- NOTE | 2016-10-07 13:29 | RADIOLOGY REPORT (SQ) ---
EXAM DESCRIPTION: CHEST PA/LAT COMPLETED DATE/TIME: 10/07/2016 1:21 pm REASON FOR STUDY: cough productive COMPARISON: 06/11/2016. EXAM PARAMETERS: NUMBER OF VIEWS: two views TECHNIQUE: Digital Frontal and Lateral radiographic views of the chest acquired. RADIATION DOSE: NA LIMITATIONS: none FINDINGS: LUNGS AND PLEURA: No opacities, masses or pneumothorax. No pleural effusion. MEDIASTINUM AND HILAR STRUCTURES: No masses or contour abnormalities. HEART AND VASCULAR STRUCTURES: Heart normal size. No evidence for failure. BONES: No acute findings. HARDWARE: None in the chest. OTHER: No other significant finding. IMPRESSION: NO SIGNIFICANT RADIOGRAPHIC FINDING IN THE CHEST. TECHNICAL DOCUMENTATION: JOB ID: [id number] [employer]- All Rights Reserved
[2016-10-07 13:40] LABS: APPEARANCE,URINE CLEAR; BILIRUBIN,URINE NEGATIVE (NEGATIVE); GLUCOSE, URINE NEGATIVE (NEGATIVE); KETONES,URINE NEGATIVE (NEGATIVE); LEUKOCYTE ESTERASE,URINE NEGATIVE (NEGATIVE); NITRITE,URINE NEGATIVE (NEGATIVE); PROTEIN,URINE NEGATIVE (NEGATIVE); URINE SPECIFIC GRAVITY 1.004; UROBILINOGEN,URINE NEGATIVE mg/dL (<2.0)
[2016-10-07 14:00] VITALS: BP 124/80
== END 2016-10-07 14:04 | disposition home or self-care (01) ==
LOC: ER 12:38
DX: J01.10 Acute frontal sinusitis, unspecified (principal); M79.1 Myalgia; R19.7 Diarrhea, unspecified; R00.0 Tachycardia, unspecified; F17.210 Nicotine dependence, cigarettes, uncomplicated; Z88.0 Allergy status to penicillin; Z88.2 Allergy status to sulfonamides
CPT/HCPCS: 71020; 81001; 81025; 87070; 87804; 87880; 99283; 99406

== ENCOUNTER 2016-12-17 18:29 | Emergency (ER) | payer BC ==
[2016-12-17 18:47] VITALS: BP 133/79
[2016-12-17] MEDS ORDERED: CYCLOBENZAPRINE HCL 10 MG TABLET PO ONE (19:17)
[2016-12-17] MEDS ORDERED: KETOROLAC TROMETHAMINE INJ/PF 30 MG/1 ML SDV IM ONE (19:17)
--- NOTE | 2016-12-17 19:18 | ER Document Report ---
HPI - HPI Patient complains to provider of: sciatica Pain Level: 3 Context: Patient is a 26-year-old female who presents emergency department complaining of left sciatica. Patient states that she was evaluated here 3 days ago and sent home on naproxen and prednisone which she has been taking as instructed. Otherwise she denies any recent fall, trauma, new injury, numbness or tingling in her lower extremity, saddle anesthesia, urinary or stool incontinence. She states she only notices it when she has heavy lifting or holding her son on her left side. 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 - CARDIOVASCULAR Cardiovascular: DENIES: Chest pain - REPRODUCTIVE Reproductive: DENIES: : - DERM Skin Color: Normal Past Medical History - Social History Smoking Status: Smoker,Current Status Unk Family History: Reviewed & Not Pertinent Patient has suicidal ideation: No Patient has homicidal ideation: No Pulmonary Medical History: Reports: Hx Asthma Renal/ Medical History: Denies: Hx Peritoneal Dialysis - Immunizations Immunizations up to date: Yes Hx Diphtheria, Pertussis, Tetanus Vaccination: Yes - 2010 [facility] Provider Document - CONSTITUTIONAL Notes: PHYSICAL EXAM GENERAL: Alert, interacts well. EXTREMITIES: Moves all 4 extremities spontaneously. No edema, radial and dorsalis pedis pulses 2/4 bilaterally. No cyanosis. Back: No spinous process tenderness, deformities, step-offs. Pain reproducible palpation of the left paralumbar musculature and left gluteal muscle group. NEUROLOGICAL: Alert and oriented x4. Normal speech. PSYCH: Normal affect, normal mood. SKIN: Warm, dry, normal turgor. No rashes or lesions noted. - INFECTION CONTROL TRAVEL OUTSIDE OF THE [place] IN LAST 30 DAYS: No - RESPIRATORY O2 Sat by Pulse Oximetry: 98 Course - Re-evaluation Re-evalutation: 12/17/16 19:34 Patient is a 26-year-old female is hemodynamically stable, no acute distress afebrile. Her presentation today is consistent with her history of chronic sciatica given that she has not been able to rest. the patient presents with low back pain without signs of spinal cord compression, cauda equina syndrome, infection, aneurysm, or other serious etiology. The patient is neurologically intact. Given the extremely low risk of these diagnoses further testing and evaluation for these possibilities does not appear to be indicated at this time. The patient has been instructed to return if the symptoms worsen or change in any way. - Vital Signs Vital signs: Temp Pulse Resp BP Pulse Ox 98.5 F 88 16 133/79 H 98 12/17/16 18:45 12/17/16 18:45 12/17/16 18:45 12/17/16 18:45 12/17/16 18:45 Discharge - Discharge Clinical Impression: Sciatica Qualifiers: Laterality: left Qualified Code(s): M54.32 - Sciatica, left side Condition: Good Disposition: HOME, SELF-CARE Additional Instructions: LOW BACK PAIN: Three out of every four people will have an episode of disabling back pain during their lifetime. Most commonly the pain is due to straining of the muscles and ligaments in the low back. Usual treatment includes: (1) Rest on a firm surface. Avoid lying on your stomach. (2) Ice pack the painful area. After a few days, gentle heat may be used intermittently to relax the area, or ice packs can be continued. (3) Medication may be needed -- muscle relaxers and antiinflammatory medicines are commonly used. (4) As the back improves, exercises are prescribed to strengthen the back and abdominal muscles. Your doctor will advise you on the proper care for your back at each stage in your recovery. You may be better in a few days -- or healing may take several weeks. If new symptoms of a "herniated disc" (radiation of pain, numbness, or tingling down the back of the leg or weakness in the leg) occur, you should be re-examined. Further testing may be necessary. PAIN MEDICATION INJECTION: You have received an injection of a pain medication. You should experience significant pain relief within 45 minutes. If this injection was a narcotic -- it will impair your judgement, slow your reaction time and make you sleepy (as well as relieve your pain). Narcotics also can cause nausea. You should not drive, work with machinery, or perform any task requiring mental alertness until all effects of the medication are gone -- six to eight hours. Do not take any alcohol, or sedatives, and do not take any other medication without checking with your physician. MUSCLE RELAXERS: Muscle relaxing medications are usually prescribed for acute muscle spasm or injury to the neck and back. They are often combined with antiinflammatory pain medication for increased relief. You may stop the muscle relaxer when the pain and stiffness have improved. Start the medication again if spasms recur. Muscle relaxers may cause drowsiness, especially with the first dose. Do not operate machinery or drive while under the effects of the medication. Most muscle relaxers last up to 24 hours. Do not combine the medication with alcohol. ICE PACKS: Apply ice packs frequently against the painful area. Many different schedules are recommended, such as "20 minutes on, 20 minutes off" or "one hour ice, two hours rest." If you need to work, you may need to go longer between ice treatments. You should plan to have the area ice packed AT LEAST one fourth of the time. The ice should be applied over the wrap, tape, or splint, or over a layer of cloth -- not directly against the skin. Some ice bags have a built-in cloth and can be put directly on the skin. WARM PACKS: After approximately two days, apply gentle heat (such as a heating pad or hot water bottle) for about 20 to 30 minutes about every two hours -- at least four times daily. Warmth and elevation will help you make a more rapid recovery , and will ease the pain considerably. Do not use HOT heat, and never apply heat for longer than 30 minutes. The continuous heat can invisibly damage skin and muscles -- even when no burn is seen on the surface. Damaged muscles can make you MORE sore. FOLLOW-UP CARE: If you have been referred to a physician for follow-up care, call the physician s office for an appointment as you were instructed or within the next two days. If you experience worsening or a significant change in your symptoms, notify the physician immediately or return to the Emergency Department at any time for re-evaluation. Prescriptions: Cyclobenzaprine HCl [Flexeril 10 mg Tablet] 10 mg PO TIDP PRN #15 tab PRN Reason: Forms: Special Work Note Referrals: [facility] [Provider Group] - Follow up in 1 week
== END 2016-12-17 19:40 | disposition home or self-care (01) ==
LOC: ER 18:29
DX: M54.32 Sciatica, left side (principal); J45.909 Unspecified asthma, uncomplicated
CPT/HCPCS: 99283; 96372; J1885

== ENCOUNTER 2017-03-07 23:01 | Emergency (ER) | payer BC ==
[2017-03-08 00:08] LABS: ABSOLUTE BASOPHILS # (AUTO) 0.1 10^3/uL (0.0-0.2); ABSOLUTE EOSINOPHILS # (AUTO) 0.1 10^3/uL (0.0-0.6); ABSOLUTE LYMPHOCYTES (AUTO) 4.5 10^3/uL (0.5-4.7); ABSOLUTE MONOCYTES (AUTO) 0.7 10^3/uL (0.1-1.4); ABSOLUTE NEUT (AUTO) 8.5 10^3/uL (1.7-8.2); EOSINOPHILS % (AUTO) 0.7 % (0-6); HEMATOCRIT 39.8 % (36.0-47.0); HEMOGLOBIN 13.7 g/dL (12.0-15.5); LYMPHOCYTES % (AUTO) 32.5 % (13-45); MEAN CORPUSCULAR HEMOGLOBIN 29.4 pg (27.0-33.4); MEAN CORPUSCULAR HGB CONC 34.5 g/dL (32.0-36.0); MEAN CORPUSCULAR VOLUME 85 fl (80-97); MONOCYTES % (AUTO) 5.1 % (3-13); PLATELET COUNT 314 10^3/uL (150-450); RED BLOOD COUNT 4.67 10^6/uL (3.72-5.28); RED CELL DISTRIBUTION WIDTH 13.8 % (11.5-14.0); SEGMENTED NEUTROPHILS % (AUTO) 60.7 % (42-78); TOTAL CELLS COUNTED % (AUTO) 100 %; WHITE BLOOD COUNT 13.9 10^3/uL (4.0-10.5)
[2017-03-08 00:15] LABS: APPEARANCE,URINE SLIGHTLY-CLOUDY; BILIRUBIN,URINE NEGATIVE (NEGATIVE); COLOR,URINE AMBER; GLUCOSE, URINE NEGATIVE (NEGATIVE); KETONES,URINE NEGATIVE (NEGATIVE); LEUKOCYTE ESTERASE,URINE NEGATIVE (NEGATIVE); NITRITE,URINE NEGATIVE (NEGATIVE); PROTEIN,URINE NEGATIVE (NEGATIVE); URINE SPECIFIC GRAVITY 1.027; UROBILINOGEN,URINE NEGATIVE mg/dL (<2.0)
[2017-03-08 00:34] LABS: ALANINE AMINOTRANSFERASE 28 U/L (9-52); ALBUMIN 4.3 g/dL (3.5-5.0); ALKALINE PHOSPHATASE 79 U/L (38-126); ANION GAP 9 (5-19); ASPARTATE AMINO TRANSFERASE 19 U/L (14-36); BILIRUBIN,DIRECT 0.1 mg/dL (0.0-0.4); BILIRUBIN,TOTAL 0.2 mg/dL (0.2-1.3); BLOOD UREA NITROGEN 5 mg/dL (7-20); CALCIUM 9.8 mg/dL (8.4-10.2); CARBON DIOXIDE 29 mmol/L (22-30); CHLORIDE 102 mmol/L (98-107); GLUCOSE 77 mg/dL (75-110); LIPASE 49.3 U/L (23-300); POTASSIUM 3.7 mmol/L (3.6-5.0); SODIUM 139.6 mmol/L (137-145); TOTAL PROTEIN 6.7 g/dL (6.3-8.2)
[2017-03-08] MEDS ORDERED: IBUPROFEN 800 MG TABLET PO ONE (00:39)
--- NOTE | 2017-03-08 01:43 | RADIOLOGY REPORT (SQ) ---
EXAM DESCRIPTION: U/S NON OB PEL TV W/DOPPLER COMPLETED DATE/TIME: 03/08/2017 1:24 am REASON FOR STUDY: llq pain. Irregular menses. Negative urine test. COMPARISON: None. TECHNIQUE: Dynamic and static grayscale images acquired of the pelvis via transabdominal and transva ginal approach and recorded on PACS. Additional selected color Doppler and spectral images recorded. LIMITATIONS: None. FINDINGS: UTERUS: Measures 9.3 x 6.4 x 5.6 cm. No focal myometrial mass was seen. ENDOMETRIAL STRIPE: Measures 1.8 cm in double wall thickness. CERVIX: Measures 2.7 cm in length. Closed. Subcentimeter nabothian cyst noted. RIGHT OVARY: Measures 3.4 x 2.6 x 2.8 cm. Flow by Doppler was shown to the right ovary. LEFT OVARY: Measures 6.6 x 3.1 x 3.6 cm. Flow by Doppler was shown to the left ovary. There is a cy st with internal septation measuring 4.8 x 2.9 x 2.3 cm. FREE FLUID: Trace amount of free fluid in the posterior cul-de-sac and adjacent to the left ovary. IMPRESSION: 1. Thickened endometrium, may be secondary to the phase of the menstrual cycle. 2. Enlarged left ovary with a 4.8 cm cyst with internal septation. Followup pelvic ultrasound in 6 w eeks recommended to re-evaluate. 3. Trace free pelvic fluid. TECHNICAL DOCUMENTATION: JOB ID: [id number] 2010 [employer]- All Rights Reserved
--- NOTE | 2017-03-08 02:22 | ER Document Report ---
ED GI/ - General Chief Complaint: Abdominal Pain Stated Complaint: STOMACH PAIN Time Seen by Provider: 03/08/17 00:36 Mode of Arrival: Ambulatory Information source: Patient Notes: Patient is a 27-year-old female who presents to the ER today for 2 days of left lower quadrant pain and feeling like she is leaking urine. Patient denies any burning with urination, hematuria, fevers or chills, history of ovarian cysts, vomiting or diarrhea. She denies any vaginal bleeding. TRAVEL OUTSIDE OF THE [place] IN LAST 30 DAYS: No - Related Data Allergies/Adverse Reactions: Penicillins Allergy (Verified 03/07/17 23:34) Sulfa (Sulfonamide Antibiotics) Allergy (Verified 03/07/17 23:34) Past Medical History - General Information source: Patient - Social History Smoking Status: Current Every Day Smoker Frequency of alcohol use: None Drug Abuse: None Family History: Reviewed & Not Pertinent Patient has suicidal ideation: No Patient has homicidal ideation: No Pulmonary Medical History: Reports: Hx Asthma Renal/ Medical History: Denies: Hx Peritoneal Dialysis - Immunizations Immunizations up to date: Yes Hx Diphtheria, Pertussis, Tetanus Vaccination: Yes - 2010 Review of Systems - Review of Systems Constitutional: No symptoms reported EENT: No symptoms reported Cardiovascular: No symptoms reported Respiratory: No symptoms reported Gastrointestinal: No symptoms reported Genitourinary: See HPI Female Genitourinary: See HPI Musculoskeletal: No symptoms reported Skin: No symptoms reported Hematologic/Lymphatic: No symptoms reported Neurological/Psychological: No symptoms reported Physical Exam - Vital signs Vitals: Temp Pulse Resp BP Pulse Ox 97.9 F 96 18 123/76 98 03/07/17 23:09 03/07/17 23:09 03/07/17 23:09 03/07/17 23:09 03/07/17 23:09 - Notes Notes: PHYSICAL EXAMINATION: GENERAL: Well-appearing and in no acute distress. HEAD: Atraumatic, normocephalic. EYES: Pupils equal round and reactive to light, extraocular movements intact, sclera anicteric, conjunctiva are normal. NECK: Normal range of motion, supple without lymphadenopathy LUNGS: CTAB and equal. No wheezes rales or rhonchi. HEART: Regular rate and rhythm without murmurs ABDOMEN: Soft, mild llq tenderness. No guarding, no rebound BACK: no vertebral tenderness, normal ROM GI/: no CVA tenderness EXTREMITIES: Normal range of motion, no pitting edema. No cyanosis. NEUROLOGICAL: Cranial nerves grossly intact. Normal sensory/motor exams. PSYCH: Normal mood, normal affect. SKIN: Warm, Dry, normal turgor, no rashes or lesions noted Course - Re-evaluation Re-evalutation: 03/08/17 02:22 Mild elevated white count 13.9, 2 white blood cells on urinalysis otherwise no evidence for infection, transvaginal ultrasound reveals a left ovarian cyst and thickening of the endometrium revealing patient is probably about to start her menstrual cycle according to radiologist. We will send patient home with Motrin and antibiotic just to cover for her urinary symptoms. - Vital Signs Vital signs: Temp Pulse Resp BP Pulse Ox 97.9 F 96 18 123/76 98 03/07/17 23:09 03/07/17 23:09 03/07/17 23:09 03/07/17 23:09 03/07/17 23:09 - Laboratory Result Diagrams: 03/07/17 23:50 03/07/17 23:50 Laboratory results interpreted by me: 03/07/17 03/07/17 23:50 23:50 WBC 13.9 H Absolute Neutrophils 8.5 H BUN 5 L Discharge - Discharge Clinical Impression: Ovarian cyst, left Urinary incontinence Qualifiers: Urinary Incontinence type: unspecified incontinence Qualified Code(s): R32 - Unspecified urinary incontinence Condition: Stable Disposition: HOME, SELF-CARE Instructions: Nitrofurantoin ([facility]) Additional Instructions: Return immediately for any new or worsening symptoms. Follow up with primary care provider, call tomorrow to make followup appointment. Prescriptions: Ibuprofen [Motrin 800 mg Tablet] 800 mg PO Q8H PRN #30 tab PRN Reason: Nitrofurantoin/Nitrofuran Mac [Macrobid 100 mg Capsule] 1 tab PO BID #6 capsule
[2017-03-08 02:48] VITALS: BP 117/77
== END 2017-03-08 02:36 | disposition home or self-care (01) ==
LOC: ER 23:01
DX: N83.202 Unspecified ovarian cyst, left side (principal); R32 Unspecified urinary incontinence; R10.32 Left lower quadrant pain; F17.200 Nicotine dependence, unspecified, uncomplicated; Z88.0 Allergy status to penicillin; Z88.2 Allergy status to sulfonamides
CPT/HCPCS: 36415; 76830; 80053; 81001; 81025; 83690; 85025; 93976; 99284

== ENCOUNTER 2017-03-20 01:25 | Emergency (ER) | payer BC ==
[2017-03-20] MEDS ORDERED: LIDOCAINE 1%/EPINEPHRINE INJ 20 ML VIAL INJ ONE (02:32)
[2017-03-20] MEDS ORDERED: METOCLOPRAMIDE HCL INJ/PF 10 MG/2 ML SDV IV ONE (02:33)
[2017-03-20] MEDS ORDERED: KETOROLAC TROMETHAMINE INJ/PF 30 MG/1 ML SDV IV ONE (02:33)
[2017-03-20] MEDS ORDERED: NORMAL SALINE 1000 ML 1,000 ML IV ONE (02:33)
[2017-03-20] MEDS ORDERED: DIPHENHYDRAMINE HCL 50 MG/ML VIAL IV ONE (02:33)
--- NOTE | 2017-03-20 02:37 | ER Document Report ---
ED Headache - General Chief Complaint: Headache Stated Complaint: HEADACHE Time Seen by Provider: 03/20/17 02:19 Notes: Patient is a 27-year-old female comes emergency department for chief complaint of headache. She states headache started at 10 am this morning, has gotten worse slowly over the day, it is throbbing and behind her right eye. She states she gets frequent migraines and takes Excedrin but that did not work for this headache. She states she is nauseated but denies vomiting, she denies visual changes but she does report photophobia. She takes Adderall, states she thinks Adderall is given her migraines. She denies head injury, fever, neck pain, focal numbness or weakness. TRAVEL OUTSIDE OF THE [place] IN LAST 30 DAYS: No - Related Data Allergies/Adverse Reactions: Penicillins Allergy (Verified 03/07/17 23:34) Sulfa (Sulfonamide Antibiotics) Allergy (Verified 03/07/17 23:34) Past Medical History - General Information source: Patient - Social History Smoking Status: Current Every Day Smoker Chew tobacco use (# tins/day): No Smoking Education Provided: Yes - <3 min Frequency of alcohol use: None Drug Abuse: None Lives with: Family Family History: Reviewed & Not Pertinent Patient has suicidal ideation: No Patient has homicidal ideation: No Pulmonary Medical History: Reports: Hx Asthma Neurological Medical History: Reports: Hx Migraine Renal/ Medical History: Denies: Hx Peritoneal Dialysis Psychiatric Medical History: Reports: Hx Attention Deficit Hyperactivity Disorder, Hx Depression Surgical Hx: Negative - Immunizations Immunizations up to date: Yes Hx Diphtheria, Pertussis, Tetanus Vaccination: Yes - 2010 Review of Systems - Review of Systems Constitutional: No symptoms reported EENT: No symptoms reported Cardiovascular: No symptoms reported Respiratory: No symptoms reported Gastrointestinal: See HPI Genitourinary: No symptoms reported Female Genitourinary: No symptoms reported Musculoskeletal: No symptoms reported Skin: No symptoms reported Hematologic/Lymphatic: No symptoms reported Neurological/Psychological: See HPI Physical Exam - Vital signs Vitals: Temp Resp BP Pulse Ox 98.2 F 18 124/89 H 97 03/20/17 01:31 03/20/17 01:31 03/20/17 01:31 03/20/17 01:31 Interpretation: Normal - General General appearance: Alert In distress: Mild - Patient actually does look mildly uncomfortable, shifting frequently, squinting her eyes - HEENT Head: Normocephalic, Atraumatic Eyes: Normal Conjunctiva: Normal Extraocular movements intact: Yes Eyelashes: Normal Pupils: PERRL Mouth/Lips: Normal Mucous membranes: Normal Pharynx: Normal Neck: Normal - Respiratory Respiratory status: No respiratory distress Chest status: Nontender Breath sounds: Normal Chest palpation: Normal - Cardiovascular Rhythm: Regular Heart sounds: Normal auscultation Murmur: No - Abdominal Inspection: Normal Distension: No distension Bowel sounds: Normal Tenderness: Nontender Organomegaly: No organomegaly - Back Back: Normal, Nontender - Extremities General upper extremity: Normal inspection, Nontender, Normal color, Normal ROM , Normal temperature General lower extremity: Normal inspection, Nontender, Normal color, Normal ROM , Normal temperature, Normal weight bearing. No: Flavio's sign - Neurological Neuro grossly intact: Yes Cognition: Normal Orientation: AAOx4 Tisha Coma Scale Eye Opening: Spontaneous Tisha Coma Scale Verbal: Oriented Tisha Coma Scale Motor: Obeys Commands Oxford Coma Scale Total: 15 Speech: Normal Cranial nerves: Normal Cerebellar coordination: Normal Motor strength normal: LUE, RUE, LLE, RLE Additional motor exam normals: Equal wire weaver Sensory: Normal - Psychological Associated symptoms: Normal affect, Normal mood - Skin Skin Temperature: Warm Skin Moisture: Dry Skin Color: Normal Course - Re-evaluation Re-evalutation: Normal neurological exam. Symptoms very suggestive of migraine, pain was not maximal in onset. On reevaluation patient stating her headache is completely gone, she feels great, she is ready to leave. Very low suspicion of venous sinus thrombosis, meningitis, subarachnoid hemorrhage, or other emergent etiology. Patient provided with Fioricet, discussed recommendations, return precautions. She states understanding and agreement. - Vital Signs Vital signs: Temp Pulse Resp BP Pulse Ox 98.2 F 90 20 122/79 98 03/20/17 01:31 03/20/17 03:59 03/20/17 03:59 03/20/17 03:59 03/20/17 03:59 Discharge - Discharge Clinical Impression: Headache Qualifiers: Headache type: unspecified Headache chronicity pattern: acute headache Intractability: not intractable Qualified Code(s): R51 - Headache Condition: Stable Disposition: HOME, SELF-CARE Additional Instructions: Your symptoms and response to treatment are consistent with a migraine headache. Rest, drink plenty of fluids, take Fioricet if needed for headache, follow-up with primary care and consider alternatives to Adderall because of suspected side effects. Return to the emergency department for any concerning symptoms including returned or severe headache, vomiting, fever, or any other concerning symptoms. Prescriptions: Butalb/Acetaminophen/Caffeine [Fioricet (50-325-40 mg) Tablet] 1 tab PO Q4HP PRN #20 tab PRN Reason: Forms: Return to Work
[2017-03-20 03:59] VITALS: BP 122/79
== END 2017-03-20 04:09 | disposition home or self-care (01) ==
LOC: ER 01:25
DX: R51 Headache (principal); R11.0 Nausea; H53.149 Visual discomfort, unspecified; J45.909 Unspecified asthma, uncomplicated; F90.9 Attention-deficit hyperactivity disorder, unspecified type; Z79.899 Other long term (current) drug therapy; F17.200 Nicotine dependence, unspecified, uncomplicated; Z71.6 Tobacco abuse counseling; Z88.0 Allergy status to penicillin; Z88.2 Allergy status to sulfonamides
CPT/HCPCS: 99284; 96374; 96375; J1200; J1885; J2765; J7030

== ENCOUNTER 2017-05-05 20:36 | Emergency (ER) | payer BC ==
[2017-05-05 20:48] VITALS: BP 131/89
[2017-05-05] MEDS ORDERED: KETOROLAC TROMETHAMINE INJ/PF 30 MG/1 ML SDV IM ONE (21:12)
--- NOTE | 2017-05-05 21:22 | ER Document Report ---
HPI - HPI Pain Level: 4 Notes: Patient is a 27-year-old female with a known history of ovarian cyst bilaterally who presents to the ED requesting a work note as she missed work because of the pain in her ovarian cyst. Patient states that the pain is intermittent and she is being followed by [facility]. Patient states that she has had this exact same pain over the last couple weeks. Patient states that she is most likely going to be having surgery in early May. Patient states that the pain does not radiate. She has no other concerns or complaints at this time. She is eating and drinking without difficulties. She is urinating normally having normal bowel movement. Denies any headache, fever, URI, sore throat, chest pain, palpitations, syncope, cough, shortness of breath, wheeze, dyspnea, nausea/vomiting/diarrhea, urinary retention, dysuria, hematuria, vaginal discharge/odor/bleeding, loss of control of bowel or bladder, numbness/ tingling, saddle anesthesia, muscle paralysis/weakness, or rash. - ROS Systems Reviewed and Negative: Yes All other systems reviewed and negative - REPRODUCTIVE Reproductive: DENIES: : Past Medical History - Social History Smoking Status: Never Smoker Family History: Reviewed & Not Pertinent Patient has suicidal ideation: No Patient has homicidal ideation: No Pulmonary Medical History: Reports: Hx Asthma Neurological Medical History: Reports: Hx Migraine Renal/ Medical History: Denies: Hx Peritoneal Dialysis Psychiatric Medical History: Reports: Hx Attention Deficit Hyperactivity Disorder, Hx Depression - Immunizations Immunizations up to date: Yes Hx Diphtheria, Pertussis, Tetanus Vaccination: Yes - 2010 Vertical Provider Document - CONSTITUTIONAL Agree With Documented VS: Yes Notes: PHYSICAL EXAMINATION: GENERAL: Well-appearing, well-nourished and in no acute distress. LUNGS: Breath sounds clear to auscultation bilaterally and equal. No wheezes rales or rhonchi. HEART: Regular rate and rhythm without murmurs, rubs, gallops. ABDOMEN: Soft, nontender, nondistended abdomen. No guarding, no rebound. No masses appreciated. Normal bowel sounds present. No CVA tenderness bilaterally. Extremities: No cyanosis, clubbing, or edema b/l. Peripheral pulses 2+. Capillary refill less than 3 seconds. NEUROLOGICAL: Normal speech, normal gait. Normal sensory, motor exams PSYCH: Normal mood, normal affect. SKIN: Warm, Dry, normal turgor, no rashes or lesions noted. - INFECTION CONTROL TRAVEL OUTSIDE OF THE [place] IN LAST 30 DAYS: No Course - Re-evaluation Re-evalutation: 05/05/17 21:19 Patient is an afebrile, well-hydrated, 27-year-old female who presents to the ED and request a work note for ovarian cyst flareup. Vitals are acceptable. PE is otherwise unremarkable. Toradol was given IM today. Patient reports having this exact same pain intermittently over the last several weeks and is being followed by [facility]. Patient declined any other further workup or treatment at this time. Patient has no tachycardia, tachypnea, hypoxia. Patient is nontoxic-appearing. Abd soft and non-tender throughout at this time. Low suspicion for any systemic emergent condition at this time including an acute abdomen. Recommend conservative measures for symptoms. Recheck with your PCM/[facility] in 2-3 days. Return to the ED with any worsening/concerning symptoms otherwise as reviewed discharge. Patient is in agreement. Work note provided. - Vital Signs Vital signs: Temp Pulse Resp BP Pulse Ox 98.4 F 94 16 131/89 H 97 05/05/17 20:46 05/05/17 20:46 05/05/17 20:46 05/05/17 20:46 05/05/17 20:46 Discharge - Discharge Clinical Impression: Pelvic pain, Worried well Condition: Stable Disposition: HOME, SELF-CARE Additional Instructions: Rest, cool compress Tylenol/ibuprofen as needed Light stretches daily Strength exercises as able Moist heat and massage may help F/u with your PCP/OBGYN in 2-3 days for a recheck Return to the ED with any worsening symptoms and/or development of fever, headache, chest pain, palpitations, syncope, shortness of breath, trouble breathing, worsening abdominal pain, n/v/d, muscle weakness/paralysis, numbness/ tingling, swelling, redness, vaginal bleeding/odor/discharge, or other worsening symptoms that are concerning to you. Forms: Return to Work, Elevated Blood Pressure Referrals: [facility] [Provider Group] - 05/07/17
== END 2017-05-05 21:28 | disposition home or self-care (01) ==
LOC: ER 20:36
DX: N83.202 Unspecified ovarian cyst, left side (principal); N83.201 Unspecified ovarian cyst, right side; R10.2 Pelvic and perineal pain; J45.909 Unspecified asthma, uncomplicated
CPT/HCPCS: 99283; 96372; J1885

== ENCOUNTER 2017-05-21 04:17 | Emergency (ER) | payer BC ==
[2017-05-21 04:23] VITALS: BP 134/74
[2017-05-21] MEDS ORDERED: IBUPROFEN 800 MG TABLET PO ONE (04:58)
[2017-05-21] MEDS ORDERED: AZITHROMYCIN 250 MG TABLET PO ONE (04:58)
[2017-05-21] MEDS ORDERED: ONDANSETRON 4 MG TAB.RAPDIS PO ONE (04:58)
--- NOTE | 2017-05-21 05:00 | ER Document Report ---
HPI - HPI Patient complains to provider of: right ear pain Onset: Yesterday Pain Level: 4 Context: 27-year-old smoker has had a recent cold but yesterday at work she bent forward and felt pressure and popping in her right ear. The pain is persisted and gotten worse. NO fever or chills. Associated Symptoms: None Exacerbated by: Denies Relieved by: Denies Similar symptoms previously: No Recently seen / treated by doctor: No - ROS ROS below otherwise negative: Yes Systems Reviewed and Negative: Yes All other systems reviewed and negative - REPRODUCTIVE Reproductive: DENIES: : Past Medical History - General Information source: Patient - Social History Smoking Status: Current Every Day Smoker Frequency of alcohol use: None Drug Abuse: None Lives with: Family Family History: Reviewed & Not Pertinent Pulmonary Medical History: Reports: Hx Asthma Neurological Medical History: Reports: Hx Migraine Renal/ Medical History: Denies: Hx Peritoneal Dialysis Psychiatric Medical History: Reports: Hx Attention Deficit Hyperactivity Disorder, Hx Depression Surgical Hx: Negative - Immunizations Immunizations up to date: Yes Hx Diphtheria, Pertussis, Tetanus Vaccination: Yes - 2010 Vertical Provider Document - CONSTITUTIONAL Agree With Documented VS: Yes - INFECTION CONTROL TRAVEL OUTSIDE OF THE [place] IN LAST 30 DAYS: No - HEENT HEENT: Normocephalic, Pharyngeal Erythema - mild, Tympanic Membrane Red, Tympanic Membrane Bulging - right-purulent effusion - NECK Neck: Supple - RESPIRATORY Respiratory: Breath Sounds Normal, No Respiratory Distress - CARDIOVASCULAR Cardiovascular: Regular Rate, Regular Rhythm - MUSCULOSKELETAL/EXTREMETIES Musculoskeletal/Extremeties: MAEW - NEURO Level of Consciousness: Awake - DERM Integumentary: Warm, Dry, No Rash Course - Vital Signs Vital signs: Temp Pulse Resp BP Pulse Ox 98.0 F 96 16 134/74 H 96 05/21/17 04:21 05/21/17 04:21 05/21/17 04:21 05/21/17 04:21 05/21/17 04:21 Discharge - Discharge Clinical Impression: Right otitis media Qualifiers: Otitis media type: suppurative Chronicity: acute Recurrence: not specified as recurrent Spontaneous tympanic membrane rupture: without spontaneous rupture Qualified Code(s): H66.001 - Acute suppurative otitis media without spontaneous rupture of ear drum, right ear Condition: Good Disposition: HOME, SELF-CARE Instructions: Azithromycin ([facility]), Otitis Media ([facility]), Ibuprofen (General) ([facility]) Additional Instructions: see your doctor for ear recheck in 1 month, sooner if worse motrin for pain tylenol for pain Prescriptions: Ibuprofen [Motrin 800 mg Tablet] 800 mg PO Q8HP PRN #30 tablet PRN Reason: Azithromycin [Zithromax] 250 mg PO DAILY #4 tablet Forms: Return to Work
[2017-05-21] MEDS ORDERED: HYDROCODONE/ACETAMINOPHEN 5-325 MG (6 TAB/ER DISP) PO PRN (05:10)
== END 2017-05-21 05:21 | disposition home or self-care (01) ==
LOC: ER 04:17
DX: H66.001 Acute suppurative otitis media without spontaneous rupture of ear drum, right ear (principal); F17.200 Nicotine dependence, unspecified, uncomplicated
CPT/HCPCS: 99282; S0119

== ENCOUNTER 2017-05-22 18:17 | Emergency (ER) | payer BC ==
[2017-05-22] MEDS ORDERED: NAPROXEN 250 MG TABLET PO ONE (18:57)
--- NOTE | 2017-05-22 18:57 | ER Document Report ---
ED Medical Screen (RME) - General Chief Complaint: Lower Abdominal Pain Stated Complaint: ABDOMINAL PAIN Time Seen by Provider: 05/22/17 18:49 Notes: 27-year-old female with known left ovarian cyst presents with worsening left lower quadrant pain. She has surgery scheduled with Dr. Saha next week. Denies dysuria, nausea, vomiting or vaginal discharge. PE: NAD. Mild LLQ tenderness. I have greeted and performed a rapid initial assessment of this patient. A comprehensive ED assessment and evaluation of the patient, analysis of test results and completion of the medical decision making process will be conducted by additional ED providers. TRAVEL OUTSIDE OF THE [place] IN LAST 30 DAYS: No - Related Data Allergies/Adverse Reactions: Penicillins Allergy (Verified 05/21/17 04:19) Sulfa (Sulfonamide Antibiotics) Allergy (Verified 05/21/17 04:19) Past Medical History - Social History Chew tobacco use (# tins/day): No Frequency of alcohol use: None Drug Abuse: None Pulmonary Medical History: Reports: Hx Asthma Neurological Medical History: Reports: Hx Migraine Renal/ Medical History: Denies: Hx Peritoneal Dialysis Psychiatric Medical History: Reports: Hx Attention Deficit Hyperactivity Disorder, Hx Depression - Anxiety - Immunizations Immunizations up to date: Yes Hx Diphtheria, Pertussis, Tetanus Vaccination: Yes - 2010 Physical Exam - Vital signs Vitals: Temp Pulse Resp BP Pulse Ox 98.4 F 103 H 16 122/79 97 05/22/17 18:30 05/22/17 18:30 05/22/17 18:30 05/22/17 18:30 05/22/17 18:30 Course - Vital Signs Vital signs: Temp Pulse Resp BP Pulse Ox 98.4 F 103 H 16 122/79 97 05/22/17 18:30 05/22/17 18:30 05/22/17 18:30 05/22/17 18:30 05/22/17 18:30
[2017-05-22 19:17] LABS: AMORPHOUS SEDIMENT,URINE TRACE /HPF; APPEARANCE,URINE CLOUDY; BILIRUBIN,URINE MODERATE (NEGATIVE); COLOR,URINE AMBER; GLUCOSE, URINE NEGATIVE (NEGATIVE); KETONES,URINE NEGATIVE (NEGATIVE); LEUKOCYTE ESTERASE,URINE TRACE (NEGATIVE); NITRITE,URINE NEGATIVE (NEGATIVE); PROTEIN,URINE NEGATIVE (NEGATIVE); URINE SPECIFIC GRAVITY 1.032
[2017-05-22] MEDS ORDERED: ACETAMINOPHEN 325 MG TABLET PO ONE (20:49)
[2017-05-22] MEDS ORDERED: LIDOCAINE 5% (700 MG) TRANSDERMAL ADH..PATCH TP ONE (20:49)
[2017-05-22] MEDS ORDERED: HYDROCODONE/ACETAMINOPHEN 5-325 MG (6 TAB/ER DISP) PO PRN (20:49)
--- NOTE | 2017-05-22 20:55 | ER Document Report ---
ED General - General Chief Complaint: Lower Abdominal Pain Stated Complaint: ABDOMINAL PAIN Time Seen by Provider: 05/22/17 18:49 Notes: Patient is a 27-year-old female with a past medical history of recurrent ovarian cyst who presents with 2-3 days of worsening left lower abdominal pain. She does described as a severe, constant, stabbing pain. She has been trying ibuprofen at home without improvement. Nothing worsens the pain other than touching the area. Patient states that she is scheduled for a left ovarian cyst resection on the of this month. She reports that she has a very large cyst there that has been causing recurrent pain. He notes that intermittently she has exacerbations of this pain that sometimes require her to seek care in the emergency department. She states that she knows that this pain is related to the ovarian cyst as she has had similar pain many times in the past. She denies any vaginal bleeding, vaginal discharge, dysuria, fever or constitutional symptoms. She states that she came to the emergency department to receive pain control. TRAVEL OUTSIDE OF THE [place] IN LAST 30 DAYS: No - Related Data Allergies/Adverse Reactions: Penicillins Allergy (Verified 05/21/17 04:19) Sulfa (Sulfonamide Antibiotics) Allergy (Verified 05/21/17 04:19) Past Medical History - General Information source: Patient - Social History Smoking Status: Current Every Day Smoker Chew tobacco use (# tins/day): No Frequency of alcohol use: None Drug Abuse: None Lives with: Alone Family History: Reviewed & Not Pertinent Patient has suicidal ideation: No Patient has homicidal ideation: No Pulmonary Medical History: Reports: Hx Asthma Neurological Medical History: Reports: Hx Migraine Renal/ Medical History: Denies: Hx Peritoneal Dialysis Psychiatric Medical History: Reports: Hx Attention Deficit Hyperactivity Disorder, Hx Depression - Anxiety - Immunizations Immunizations up to date: Yes Hx Diphtheria, Pertussis, Tetanus Vaccination: Yes - 2010 Review of Systems - Review of Systems Notes: Constitutional: Negative for fever. HENT: Negative for sore throat. Eyes: Negative for visual changes. Cardiovascular: Negative for chest pain. Respiratory: Negative for shortness of breath. Gastrointestinal: Positive for left lower abdominal pain Genitourinary: Negative for dysuria. Musculoskeletal: Negative for back pain. Skin: Negative for rash. Neurological: Negative for headaches, weakness or numbness. 10 point ROS negative except as marked above and in HPI. Physical Exam - Vital signs Vitals: Temp Pulse Resp BP Pulse Ox 98.4 F 103 H 16 122/79 97 05/22/17 18:30 05/22/17 18:30 05/22/17 18:30 05/22/17 18:30 05/22/17 18:30 Interpretation: Tachycardic Notes: PHYSICAL EXAMINATION: GENERAL: Well-appearing, well-nourished and in no acute distress. HEAD: Atraumatic, normocephalic. EYES: Pupils equal round and reactive to light, extraocular movements intact, sclera anicteric, conjunctiva are normal. ENT: nares patent, oropharynx clear without exudates. Moist mucous membranes. NECK: Normal range of motion, supple without lymphadenopathy LUNGS: Breath sounds clear to auscultation bilaterally and equal. No wheezes rales or rhonchi. HEART: Regular rate and rhythm without murmurs ABDOMEN: Soft, nontender, normoactive bowel sounds. No guarding, no rebound. No masses appreciated. EXTREMITIES: Normal range of motion, no pitting or edema. No cyanosis. NEUROLOGICAL: No focal neurological deficits. Moves all extremities spontaneously and on command. PSYCH: Normal mood, normal affect. SKIN: Warm, Dry, normal turgor, no rashes or lesions noted. Course - Re-evaluation Re-evalutation: 05/22/17 20:54 Patient presents with recurrent left lower and adnexal pain. Patient states that she has a known large left ovarian cyst and actually has scheduled surgery on the of this month for resection of the cyst due to this recurrent pain. Pain is very similar to similar exacerbations that she has had in the past. On examining patient appears in no discomfort whatsoever. Vitals are within normal lives at time of my assessment. She has minimal left adnexal and lower abdominal tenderness on palpation. She has no focal right lower quadrant, right upper quadrant or epigastric abdominal tenderness. Her labs otherwise unremarkable. I do not believe there is any indication for acute transvaginal ultrasound at this time as the patient has a known diagnosis of a large ovarian cyst on that side and does report that this is not actually much different than when she has had exacerbations of pain in the past. Moreover her symptoms have been ongoing for at least 2 days making an acute ovarian torsion unlikely. Patient is agreeable to avoiding a transvaginal ultrasound stating "I already know what this is I just want to see if I can get something to help control the pain". I recommended Tylenol, ibuprofen and have provided a very small amount of Worthing to go home with. At this time will discharge with return precautions and follow-up recommendations. Verbal discharge instructions given a the bedside and opportunity for questions given. Medication warnings reviewed. Patient is in agreement with this plan and has verbalized understanding of return precautions and the need for primary care follow-up in the next 24-72 hours. - Vital Signs Vital signs: Temp Pulse Resp BP Pulse Ox 97.6 F 81 16 109/56 L 97 05/22/17 21:09 05/22/17 21:09 05/22/17 21:09 05/22/17 21:09 05/22/17 21:09 - Laboratory Laboratory results interpreted by me: 05/22/17 18:55 Urine Bilirubin MODERATE H Urine Urobilinogen 4.0 H Ur Leukocyte Esterase TRACE H Discharge - Discharge Clinical Impression: Recurrent left lower quadrant abdominal pain, Left ovarian cyst Condition: Good Disposition: HOME, SELF-CARE Additional Instructions: For your pain: Take ibuprofen 600 mg and acetaminophen 650 mg every 6 hours together as needed for pain. If this does not control your pain you may take 1 of the Worthing tablets that she was sent home with. Please be extremely cautious and recognized the Worthing is a highly addictive substances and try not to use it if you can avoid it. Please follow-up with [facility] as scheduled for definitive management of your recurrent cyst pain. Return if you have worsening pain, develop a fever, persistent vomiting, or any other symptoms that are worrisome to you.
[2017-05-22 21:10] VITALS: BP 109/56
== END 2017-05-22 21:10 | disposition home or self-care (01) ==
LOC: ER 18:17
DX: N83.202 Unspecified ovarian cyst, left side (principal); R10.31 Right lower quadrant pain; F17.200 Nicotine dependence, unspecified, uncomplicated; J45.909 Unspecified asthma, uncomplicated
CPT/HCPCS: 81001; 81025; 99284

== ENCOUNTER 2017-05-28 01:20 | Emergency (ER) | payer BC ==
[2017-05-28] MEDS ORDERED: LIDOCAINE 5% (700 MG) TRANSDERMAL ADH..PATCH TP ONE (02:49)
[2017-05-28] MEDS ORDERED: ACETAMINOPHEN 325 MG TABLET PO ONE (02:49)
--- NOTE | 2017-05-28 02:49 | ER Document Report ---
ED GI/ - General Chief Complaint: Pelvic Pain Stated Complaint: ABDOMINAL PAIN Time Seen by Provider: 05/28/17 02:41 Notes: Patient is a 27-year-old female who returns emergency department with a chief complaint of left lower abdominal pain. Patient states that she has a known ovarian cyst that she is having a left oophrectomy on the . She states that her pain is a constant ache with occasional sharp stabbing pain. She states that today it is occasionally radiating into her back. She states it only gets worse whenever she does heavy lifting at work. She denies any pyuria , hematuria, vaginal bleeding, vaginal discharge, fever or chills. TRAVEL OUTSIDE OF THE [place] IN LAST 30 DAYS: No - Related Data Allergies/Adverse Reactions: Penicillins Allergy (Verified 05/28/17 01:27) Sulfa (Sulfonamide Antibiotics) Allergy (Verified 05/28/17 01:27) Past Medical History - Social History Smoking Status: Current Every Day Smoker Family History: Reviewed & Not Pertinent Pulmonary Medical History: Reports: Hx Asthma Neurological Medical History: Reports: Hx Migraine Renal/ Medical History: Denies: Hx Peritoneal Dialysis Psychiatric Medical History: Reports: Hx Attention Deficit Hyperactivity Disorder, Hx Depression - Anxiety - Immunizations Immunizations up to date: Yes Hx Diphtheria, Pertussis, Tetanus Vaccination: Yes - 2010 Review of Systems - Review of Systems Constitutional: No symptoms reported EENT: No symptoms reported Cardiovascular: No symptoms reported Respiratory: No symptoms reported Gastrointestinal: No symptoms reported Genitourinary: See HPI Female Genitourinary: See HPI Musculoskeletal: No symptoms reported Neurological/Psychological: No symptoms reported -: Yes All other systems reviewed and negative Physical Exam - Vital signs Vitals: Temp Pulse Resp BP Pulse Ox 98.1 F 95 14 131/80 H 98 05/28/17 01:29 05/28/17 01:29 05/28/17 01:29 05/28/17 01:29 05/28/17 01:29 - Notes Notes: PHYSICAL EXAM GENERAL: Alert, interacts well. Sitting comfortably and texting on her phone. HEAD: Normocephalic, atraumatic. EYES: Pupils equal, round, and reactive to light. Extraocular movements intact. LUNGS: Clear to auscultation bilaterally, no wheezes, rales, or rhonchi. No respiratory distress. HEART: Regular rate and rhythm. No murmurs, gallops, or rubs. ABDOMEN: Soft, nondistended, mild tenderness of LLQ. No guarding, rebound, or rigidity.. Bowel sounds present in all 4 quadrants. FEMALE : Normal external exam. No evidence of lesions, lacerations, bruising or vesicles. Speculum exam normal cervix closed. No evidence of vaginal discharge with odor. No evidence of lesions. No vaginal bleeding. Bimanual exam normal no cervical motion tenderness. No adnexal mass or adnexal tenderness. NEUROLOGICAL: Alert and oriented x4. Normal speech. PSYCH: Normal affect, normal mood. SKIN: Warm, dry, normal turgor. No rashes or lesions noted. Course - Re-evaluation Re-evalutation: 05/28/17 03:57 Patient is a 27-year-old female who is hemodynamically stable, no acute distress and afebrile. Exam is consistent with her chronic pain from her left ovarian cyst and patient has procedure scheduled for Sunday of this week. Pelvic exam benign. She has minimal left adnexal and lower abdominal tenderness on palpation without any concerns for ovarian torsion given her pain is consistent with her previous exacerbations of her ovarian cyst discomfort. Patient had significant improvement of her pain after a Lidoderm patch and Tylenol. Patient without any focal right lower quadrant, right upper quadrant or epigastric tenderness. Patient is agreeable to avoiding a transvaginal ultrasound. At this time will discharge with return precautions and follow-up recommendations. Verbal discharge instructions given a the bedside and opportunity for questions given. Medication warnings reviewed. Patient is in agreement with this plan and has verbalized understanding of return precautions and the need for primary care follow-up in the next 24-72 hours. - Vital Signs Vital signs: Temp Pulse Resp BP Pulse Ox 98.1 F 95 14 131/80 H 98 05/28/17 01:29 05/28/17 01:29 05/28/17 01:29 05/28/17 01:29 05/28/17 01:29 Discharge - Discharge Clinical Impression: Left ovarian cyst Condition: Good Disposition: HOME, SELF-CARE Instructions: Ovarian Cyst ([facility]) Prescriptions: Lidocaine [Lidoderm 5% (700 mg) Transdermal Patch] 1 patch TP DAILY #10 adh..patch Referrals: STARR METCALF MD [ACTIVE STAFF] - 05/30/17
[2017-05-28] MEDS ORDERED: HYDROCODONE/ACETAMINOPHEN 5-325 MG (6 TAB/ER DISP) PO PRN (04:01)
[2017-05-28 04:27] VITALS: BP 128/78
== END 2017-05-28 04:27 | disposition home or self-care (01) ==
LOC: ER 01:20
DX: N83.202 Unspecified ovarian cyst, left side (principal); J45.909 Unspecified asthma, uncomplicated; F17.200 Nicotine dependence, unspecified, uncomplicated; Z88.0 Allergy status to penicillin; Z88.2 Allergy status to sulfonamides
CPT/HCPCS: 99283

== ENCOUNTER 2017-05-30 05:58 | Day surgery (SDC) | payer BC ==
[2017-05-25 12:43] LABS: APPEARANCE,URINE CLOUDY; BILIRUBIN,URINE NEGATIVE (NEGATIVE); GLUCOSE, URINE NEGATIVE (NEGATIVE); KETONES,URINE NEGATIVE (NEGATIVE); LEUKOCYTE ESTERASE,URINE NEGATIVE (NEGATIVE); NITRITE,URINE NEGATIVE (NEGATIVE); PROTEIN,URINE NEGATIVE (NEGATIVE); URINE SPECIFIC GRAVITY 1.031
[2017-05-25 12:47] LABS: COLOR,URINE YELLOW
[2017-05-25 12:50] LABS: HEMATOCRIT 39.3 % (36.0-47.0); HEMOGLOBIN 13.3 g/dL (12.0-15.5); MEAN CORPUSCULAR HEMOGLOBIN 29.3 pg (27.0-33.4); MEAN CORPUSCULAR HGB CONC 33.7 g/dL (32.0-36.0); MEAN CORPUSCULAR VOLUME 87 fl (80-97); PLATELET COUNT 388 10^3/uL (150-450); RED BLOOD COUNT 4.52 10^6/uL (3.72-5.28); RED CELL DISTRIBUTION WIDTH 14.5 % (11.5-14.0); WHITE BLOOD COUNT 13.5 10^3/uL (4.0-10.5)
[~2017-05-30 05:58] MED LIST: LACTATED RINGERS 1000 ML IV PRN; LIDOCAINE 0.5% INJ-PF (5 MG/ML) 50 ML SDV SUBCUT PRN
[2017-05-30] MEDS ORDERED: MIDAZOLAM 2 MG/2 ML INJ ONE (07:10)
[2017-05-30] MEDS ORDERED: ACETAMINOPHEN 100 ML IV ONE (07:10)
[2017-05-30] MEDS ORDERED: PROPOFOL INJ 200 MG/20 ML VIAL IV ONE (07:10)
[2017-05-30] MEDS ORDERED: FENTANYL CITRATE INJ/PF 100 MCG/2 ML AMPUL ONE (07:10)
[2017-05-30] MEDS ORDERED: HYDROMORPHONE HCL INJ/PF 2 MG/ML AMPULE ONE (07:10)
[2017-05-30] MEDS ORDERED: BUPIVACAINE HCL 0.25 % INJ/PF (2.5 MG/1 ML) 30 ML VIAL ONE (07:11)
[2017-05-30] MEDS ORDERED: FENTANYL CITRATE INJ/PF 100 MCG/2 ML AMPUL IV PRN ×3 (07:53)
[2017-05-30] MEDS ORDERED: MORPHINE SULFATE 10 MG/ML INJ IV PRN (07:53)
[2017-05-30] MEDS ORDERED: DIPHENHYDRAMINE HCL 50 MG/ML VIAL IV PRN (07:53)
[2017-05-30] MEDS ORDERED: MEPERIDINE HCL/PF INJ 25 MG/1 ML DISP.SYRIN IV PRN (07:53)
[2017-05-30] MEDS ORDERED: PROMETHAZINE HCL INJ 25 MG/1 ML VIAL IV PRN (07:53)
[2017-05-30] MEDS: FENTANYL CITRATE INJ/PF 100 MCG/2 ML AMPUL ONE ×2 (08:50→08:55)
[2017-05-30] MEDS ORDERED: OXYCODONE-ACETAMINOPHEN 5-325 MG TABLET PO PRN (09:38)
[2017-05-30] MEDS ORDERED: ONDANSETRON HCL 8 MG TABLET PO PRN (09:38)
[2017-05-30] MEDS ORDERED: OXYCODONE-ACETAMINOPHEN 5-325 MG TABLET ONE (09:42)
[2017-05-30] MEDS ORDERED: IBUPROFEN 800 MG TABLET ONE (09:42)
[2017-05-30 10:34] VITALS: BP 112/74
[2017-05-30] MEDS ORDERED: NEOSTIGMINE METHYLSULFATE 10 MG/10 ML VIAL ONE (12:43)
[2017-05-30] MEDS ORDERED: DEXAMETHASONE SOD PHOSPHATE INJ 4 MG/1 ML VIAL ONE (12:43)
[2017-05-30] MEDS ORDERED: ONDANSETRON HCL INJ/PF 4 MG/2 ML SDV ONE (12:43)
[2017-05-30] MEDS ORDERED: LIDOCAINE 2% INJ-PF (20 MG/ML) 2 ML AMPUL ONE (12:43)
[2017-05-30] MEDS ORDERED: ROCURONIUM BROMIDE INJ 50 MG/5 ML VIAL IV ONE (12:43)
[2017-05-30] MEDS ORDERED: IBUPROFEN 800 MG TABLET PO SCH (14:00)
--- NOTE | 2017-05-31 12:44 | OPERATIVE REPORT E ---
Operative Report NAME: REN ARROYO : 1990 AGE: 27Y DATE OF SURGERY: 05/30/2017 ROOM: PREOPERATIVE DIAGNOSIS: _multiparity and a chronic left lower quadrant pain with ovarian cyst. POSTOPERATIVE DIAGNOSIS: _multiparity and a chronic left lower quadrant pain with ovarian cyst. PROCEDURE: Bilateral salpingectomy and a left oophorectomy. SURGEON: Eleonora METCALF M.D. ESTIMATED BLOOD LOSS: Less than 5 mL. TISSUE REMOVED OR ALTERED: Tubes and left ovary. ANESTHESIA: General. PROCEDURE: The patient was placed in a dorsal lithotomy position, prepped and draped in sterile fashion. The speculum was placed, cervix was visualized and grasped with a single-tooth tenaculum. Hulka tenaculum was placed. Single-tooth tenaculum was removed. Bladder was drained with a catheter. Attention was turned to the abdomen where a subumbilical semilunar incision was made. Trocar was introduced. With insufflation of the abdomen, with visualization of the pelvis, uterus appeared to be normal in size and shape. Both tubes appeared to be normal. On the left, there were multiple ovarian cysts, and also on the left, lateral to the ovary, an anterior small bowel was adhered to the abdominal wall. The second puncture was made lateral to the first, and a trocar was introduced and a third suprapubic _5 mm trocar was introduced. Using a harmonic scalpel, the right fallopian tube was removed with cautery and dissection. On the left, the left ovarium was identified and divided. This was continued down to where the left tube could be removed. So, the left tube and ovary were removed intact. Hemostasis was noted. The pelvis* appeared to be normal, and hemostasis was noted. The trocar sleeves were removed, and the incision was closed with 0 Vicryl for the fascia and 4-0 Vicryl subcutaneous. The patient was taken to the recovery room in good condition, tolerated the procedure well. DICTATING PHYSICIAN: Eleonora METCALF M.D. [id number] PHY#: [id number] ID: [id number] JOB#: [id number] ACCT: [id number] cc:Eleonora METCALF M.D. > MTDD
== END 2017-05-30 10:30 | disposition home or self-care (01) ==
LOC: OROUT 05:58
PROVIDERS: ATTEND Obstetrics & Gynecology Gynecology
DX: Z30.2 Encounter for sterilization (principal); N83.8 Other noninflammatory disorders of ovary, fallopian tube and broad ligament; N83.12 Corpus luteum cyst of left ovary; R10.2 Pelvic and perineal pain; Z32.02 Encounter for pregnancy test, result negative; J45.909 Unspecified asthma, uncomplicated; F17.210 Nicotine dependence, cigarettes, uncomplicated; Z88.2 Allergy status to sulfonamides; Z88.0 Allergy status to penicillin
CPT/HCPCS: 36415; 85027; 81005; 81025; 88305 ×2; 58661; J2250; J3490 ×2; J1100; J3010; J1170; J2405; J2704; J0131; 840

== ENCOUNTER 2017-06-03 00:29 | Emergency (ER) | payer BC ==
[2017-06-03 03:22] LABS: ABSOLUTE BASOPHILS # (AUTO) 0.1 10^3/uL (0.0-0.2); ABSOLUTE EOSINOPHILS # (AUTO) 0.1 10^3/uL (0.0-0.6); ABSOLUTE LYMPHOCYTES (AUTO) 3.3 10^3/uL (0.5-4.7); ABSOLUTE MONOCYTES (AUTO) 0.7 10^3/uL (0.1-1.4); ABSOLUTE NEUT (AUTO) 10.2 10^3/uL (1.7-8.2); BASOPHILS % (AUTO) 0.7 % (0-2); EOSINOPHILS % (AUTO) 0.8 % (0-6); HEMATOCRIT 39.3 % (36.0-47.0); HEMOGLOBIN 13.6 g/dL (12.0-15.5); MEAN CORPUSCULAR HEMOGLOBIN 29.8 pg (27.0-33.4); MEAN CORPUSCULAR HGB CONC 34.6 g/dL (32.0-36.0); MEAN CORPUSCULAR VOLUME 86 fl (80-97); MONOCYTES % (AUTO) 4.7 % (3-13); PLATELET COUNT 347 10^3/uL (150-450); RED BLOOD COUNT 4.57 10^6/uL (3.72-5.28); RED CELL DISTRIBUTION WIDTH 13.6 % (11.5-14.0); SEGMENTED NEUTROPHILS % (AUTO) 70.8 % (42-78); TOTAL CELLS COUNTED % (AUTO) 100 %; WHITE BLOOD COUNT 14.3 10^3/uL (4.0-10.5)
[2017-06-03 03:33] LABS: ANION GAP 15 (5-19); BLOOD UREA NITROGEN 11 mg/dL (7-20); CALCIUM 9.6 mg/dL (8.4-10.2); CARBON DIOXIDE 23 mmol/L (22-30); CHLORIDE 105 mmol/L (98-107); GLUCOSE 92 mg/dL (75-110); POTASSIUM 4.5 mmol/L (3.6-5.0); SODIUM 142.8 mmol/L (137-145)
[2017-06-03] MEDS ORDERED: HYDROMORPHONE HCL INJ/PF 2 MG/ML AMPULE IV ONE (04:26)
--- NOTE | 2017-06-03 04:30 | ER Document Report ---
ED General - General Chief Complaint: Post Surgical Pain Stated Complaint: POST OP COMPLICATION Time Seen by Provider: 06/03/17 02:39 Notes: Patient is a 27-year-old female presents with complaint of left pelvic region. He recently underwent a left oophorectomy and bilateral salpingectomy for by Dr. Saha. She said that she was replaced on Percocet. Says she ran out is been taking Motrin. She initially Motrin was doing okay but last 24 hours start having worsening pain. She also noticed some glue came off of her incision sites. No fevers. No vomiting. No diarrhea. No abnormal vaginal bleeding or discharge. No other complaints at this time. TRAVEL OUTSIDE OF THE [place] IN LAST 30 DAYS: No - Related Data Allergies/Adverse Reactions: Penicillins Allergy (Verified 05/28/17 01:27) Sulfa (Sulfonamide Antibiotics) Allergy (Verified 05/28/17 01:27) Past Medical History - Social History Smoking Status: Unknown if Ever Smoked Frequency of alcohol use: None Drug Abuse: None Family History: Reviewed & Not Pertinent Patient has suicidal ideation: No Patient has homicidal ideation: No - Past Medical History Cardiac Medical History: Denies: Hx Coronary Artery Disease, Hx Heart Attack, Hx Hypertension Pulmonary Medical History: Reports: Hx Asthma, Hx Pneumonia - LAST IN 2000 Denies: Hx Bronchitis, Hx COPD Neurological Medical History: Reports: Hx Migraine. Denies: Hx Cerebrovascular Accident, Hx Seizures Renal/ Medical History: Denies: Hx Peritoneal Dialysis Musculoskeltal Medical History: Denies Hx Arthritis Psychiatric Medical History: Reports: Hx Attention Deficit Hyperactivity Disorder, Hx Depression - Anxiety - Immunizations Immunizations up to date: Yes Hx Diphtheria, Pertussis, Tetanus Vaccination: Yes - 2010 Review of Systems - Review of Systems Notes: My Normal Review Basic REVIEW OF SYSTEMS: CONSTITUTIONAL : Denies fever, chills, or sweats. Denies recent illness. RESPIRATORY: Denies cough, cold, or chest congestion. Denies shortness of breath, difficulty breathing, or wheezing. GASTROINTESTINAL: Denies abdominal pain. Denies nausea, vomiting, or diarrhea. Denies constipation. Last BM: GENITOURINARY: Left lower quadrant abdominal pain FEMALE GENITOURINARY: Denies vaginal bleeding, abnormal or irregular periods. MUSCULOSKELETAL: Denies neck or back pain or joint pain or swelling. SKIN: Denies rash or skin lesions. NEUROLOGICAL: Denies altered mental status or loss of consciousness. Denies headache. Denies weakness or paralysis or loss of use of either side. Denies problems with gait or speech. Denies sensory or motor loss. ALL OTHER SYSTEMS REVIEWED AND NEGATIVE. Physical Exam - Vital signs Vitals: Temp Pulse Resp BP Pulse Ox 98.8 F 114 H 22 H 125/84 97 06/03/17 01:06/03/17 01:29 06/03/17 01:06/03/17 01:06/03/17 01:29 - Notes Notes: General Appearance: Well nourished, alert, cooperative, no acute distress, mild to moderate obvious discomfort. Vitals: reviewed, See vital signs table. Head: no swelling or tenderness to the head Eyes: PERRL, EOMI, Conjuctiva clear Mouth: No decreasd moisture Lungs: No wheezing, No rales, No rhonci, No accessory muscle use, good air exchange bilaterally. Heart: Normal rate, Regular rythm, No murmur, no rub Abdomen: Normal BS, soft, No rigidity, lower quadrant abdominal tenderness to palpation, No guarding, no rebound, Extremities: strength 5/5 in all extremities, good pulses in all extremities, no swelling or tenderness in the extremities, no edema. Skin: warm, dry, appropriate color, no rash Neuro: speech clear, oriented x 3, normal affect, responds appropriately to questions. Course - Re-evaluation Re-evalutation: 06/03/17 06:17 I called the radiologist hotline because the patient CT scan was done for an hour and half ago and has not been red. The radiologist x-rays said that he would resend it to the radiologist to try to get it read. 06/03/17 06:18 06/03/17 06:39 Patient's pain is improved after pain medication. CT scan was obtained because she did have a little bit of a leukocytosis of 14,000. She has no fever. She did have some pain that she felt was increasing. CT scan shows just some mild inflammation which could be related to postsurgical changes or cellulitis. I do not suspect cellulitis as the patient does not have any redness or warmth to the skin whatsoever and there is no abnormal drainage from surgical wounds. Patient is well-appearing and feels safe to be discharged home. I will prescribe her a few more Percocet until she is able follow-up with her surgeon, Dr. Saha. I strongly encouraged her return to ER immediately if she has any redness or swelling to the abdomen, fevers, worsening pain, or she feels that she is worsening in any way. Patient agrees with plan and will be discharged home. Dictation of this chart was performed using voice recognition software; therefore, there may be some unintended grammatical errors. - Vital Signs Vital signs: Temp Pulse Resp BP Pulse Ox 98.5 F 84 18 139/87 H 96 06/03/17 05:33 06/03/17 05:33 06/03/17 05:33 06/03/17 05:33 06/03/17 05:33 - Laboratory Result Diagrams: 06/03/17 03:09 06/03/17 03:09 Laboratory results interpreted by me: 06/03/17 03:09 WBC 14.3 H Absolute Neutrophils 10.2 H Discharge - Discharge Clinical Impression: Post-op pain Condition: Good Disposition: HOME, SELF-CARE Instructions: Oral Narcotic Medication ([facility]) Additional Instructions: Please use the Percocet only for break through pain. Use Ibuprofen first for pain control. Please return to the ER immediately if you develop swelling in your abdomen, increasing pain, redness to the skin, abnormal drainage from your surgical wounds, fevers, or if you feel that you are worsening in any way. Follow up with Dr. Saha in 2-3 days for reevaluation. Prescriptions: Oxycodone HCl/Acetaminophen [Percocet 5-325 mg Tablet] 1 tab PO Q6 PRN #15 tab PRN Reason: For Breakthrough Pain Forms: Return to Work Referrals: STARR SAHA MD [ACTIVE STAFF] - 06/05/17
[2017-06-03 06:03] VITALS: BP 139/87
--- NOTE | 2017-06-03 06:16 | RADIOLOGY REPORT (SQ) ---
EXAM DESCRIPTION: CT ABD/PELVIS WITH IV ONLY CLINICAL HISTORY: 27 years Female, post op pain COMPARISON: Ultrasound pelvis March 08, 2017 TECHNIQUE: IV contrast. Coronal and sagittal reformat. This exam was performed according to our departmental dose-optimization program, which includes automated exposure control, adjustment of the mA and/or kV according to patient size and/or use of iterative reconstruction technique. FINDINGS: Small free fluid in the pelvis. Mild edema/emphysema and subcentimeter nodularity/scar of the left abdominal/pelvic wall, left lower quadrant consistent with prior surgery. Normal appendix. Inferior thorax, liver, gallbladder, pancreas, spleen, adrenals, renal system, gastrointestinal tract, pelvic organs, lymphatics, vasculature, and musculoskeleton appear otherwise unremarkable. IMPRESSION: 1. Small free fluid in the pelvis. 2. Mild inflamed/postsurgical appearance of the abdominal/pelvic wall of the left lower quadrant. Differential diagnosis includes cellulitis. No abscess and no drainable fluid collection.
== END 2017-06-03 06:00 | disposition home or self-care (01) ==
LOC: ER 00:29
DX: G89.18 Other acute postprocedural pain (principal); R10.32 Left lower quadrant pain; Z90.722 Acquired absence of ovaries, bilateral; J45.909 Unspecified asthma, uncomplicated
CPT/HCPCS: 99284; 96374; 36415; 85025; 80048; 74177; J1170

== ENCOUNTER 2017-06-14 02:19 | Emergency (ER) | payer BC ==
[2017-06-14 02:26] VITALS: BP 131/79
[2017-06-14] MEDS ORDERED: KETOROLAC TROMETHAMINE INJ/PF 30 MG/1 ML SDV IV ONE (02:41)
[2017-06-14] MEDS ORDERED: KETOROLAC TROMETHAMINE INJ/PF 30 MG/1 ML SDV IM ONE (02:44)
[2017-06-14] MEDS ORDERED: ACETAMINOPHEN 325 MG TABLET PO ONE (02:48)
--- NOTE | 2017-06-14 02:48 | ER Document Report ---
ED General - General Chief Complaint: Lower Abdominal Pain Stated Complaint: ABDOMINAL PAIN Time Seen by Provider: 06/14/17 02:34 Notes: Patient is a 27-year-old female presents with complaint of some lower pelvic pain and cramping. On May 30 she underwent a left oophorectomy as well as bilateral salpingectomy. She followed up with Dr. Saha yesterday was doing very well. Today she was picking up her child and playing with her child and then started having cramping pain afterwards. She took 100 mg Motrin which did not relieve her pain therefore she came to the ER. No abnormal vaginal discharge. No bleeding. No fevers. No vomiting. No other complaints at this time. TRAVEL OUTSIDE OF THE [place] IN LAST 30 DAYS: No - Related Data Allergies/Adverse Reactions: Penicillins Allergy (Verified 05/28/17 01:27) Sulfa (Sulfonamide Antibiotics) Allergy (Verified 05/28/17 01:27) Past Medical History - Social History Smoking Status: Current Every Day Smoker Frequency of alcohol use: None Drug Abuse: None Family History: Reviewed & Not Pertinent - Past Medical History Cardiac Medical History: Denies: Hx Coronary Artery Disease, Hx Heart Attack, Hx Hypertension Pulmonary Medical History: Reports: Hx Asthma, Hx Pneumonia - LAST IN 2000 Denies: Hx Bronchitis, Hx COPD Neurological Medical History: Reports: Hx Migraine. Denies: Hx Cerebrovascular Accident, Hx Seizures Renal/ Medical History: Denies: Hx Peritoneal Dialysis Musculoskeltal Medical History: Denies Hx Arthritis Psychiatric Medical History: Reports: Hx Attention Deficit Hyperactivity Disorder, Hx Depression - Anxiety - Immunizations Immunizations up to date: Yes Hx Diphtheria, Pertussis, Tetanus Vaccination: Yes - 2010 Review of Systems - Review of Systems Notes: My Normal Review Basic REVIEW OF SYSTEMS: CONSTITUTIONAL : Denies fever, chills, or sweats. Denies recent illness. RESPIRATORY: Denies cough, cold, or chest congestion. Denies shortness of breath, difficulty breathing, or wheezing. GASTROINTESTINAL: Lower abdominal pain. Denies nausea, vomiting, or diarrhea. Denies constipation. Last BM: GENITOURINARY: Denies difficulty urinating, painful urination, burning, frequency, or blood in urine. FEMALE GENITOURINARY: Denies vaginal bleeding, abnormal or irregular periods. MUSCULOSKELETAL: Denies neck or back pain or joint pain or swelling. SKIN: Denies rash or skin lesions. NEUROLOGICAL: Denies altered mental status or loss of consciousness. Denies headache. Denies weakness or paralysis or loss of use of either side. Denies problems with gait or speech. Denies sensory or motor loss. ALL OTHER SYSTEMS REVIEWED AND NEGATIVE. Physical Exam - Vital signs Vitals: Temp Pulse Resp BP Pulse Ox 97.6 F 101 H 16 131/79 H 97 06/14/17 02:25 06/14/17 02:25 06/14/17 02:25 06/14/17 02:25 06/14/17 02:25 - Notes Notes: General Appearance: Well nourished, alert, cooperative, no acute distress, mild obvious discomfort. Vitals: reviewed, See vital signs table. Head: no swelling or tenderness to the head Eyes: PERRL, EOMI, Conjuctiva clear Mouth: No decreasd moisture Lungs: No wheezing, No rales, No rhonci, No accessory muscle use, good air exchange bilaterally. Heart: Normal rate, Regular rythm, No murmur, no rub Abdomen: Normal BS, soft, No rigidity, mild suprapubic abdominal tenderness to palpation, No guarding, no rebound Extremities: strength 5/5 in all extremities, good pulses in all extremities, no swelling or tenderness in the extremities, no edema. Skin: warm, dry, appropriate color, no rash Neuro: speech clear, oriented x 3, normal affect, responds appropriately to questions. Course - Re-evaluation Re-evalutation: 06/15/17 03:48 Patient's laboratory evaluation very benign. Abdomen soft and not rigid or firm. Tenderness pretty minimal on exam. Her surgical wounds appear to be healing well without any signs of infection. Her pain did not start until after she has been picking up her kids lifting around today. I suspect most like she probably has some scar tissue that developed since the surgery most likely pulled on the scar tissue causing pain. Her laboratory evaluation is unremarkable. I feel she is safe to be discharged home. I strongly encouraged her return to ER immediately if she has recurrent worsening pain, any vaginal bleeding, fevers, or she feels unwell. Patient agrees with plan will be discharged home. Dictation of this chart was performed using voice recognition software; therefore, there may be some unintended grammatical errors. - Vital Signs Vital signs: Temp Pulse Resp BP Pulse Ox 97.6 F 101 H 16 131/79 H 97 06/14/17 02:25 06/14/17 02:25 06/14/17 02:25 06/14/17 02:25 06/14/17 02:25 - Laboratory Result Diagrams: 06/14/17 03:00 06/14/17 03:00 Laboratory results interpreted by me: 06/14/17 03:00 WBC 12.5 H Discharge - Discharge Clinical Impression: Abdominal pain Qualifiers: Abdominal location: lower abdomen, unspecified Qualified Code(s): R10.30 - Lower abdominal pain, unspecified Condition: Good Disposition: HOME, SELF-CARE Additional Instructions: Please follow up with Dr. Saha in 1-2 days. Please return to the ER immediately if you have worsening pain, vomiting, fevers, or feel unwell. Please do not lift anything heavy or over exert yourself over the next week. Do not take other NSAID medicaitons such as Aspirin, Motrin, Ibuprofen, Aleve, or Advil when taking Toradol. It is okay to take Tylenol. Prescriptions: Ketorolac Tromethamine [Toradol 10 mg Tablet] 10 mg PO Q8HP PRN #15 tablet PRN Reason: For Breakthrough Pain
[2017-06-14 03:12] LABS: ABSOLUTE BASOPHILS # (AUTO) 0.1 10^3/uL (0.0-0.2); ABSOLUTE EOSINOPHILS # (AUTO) 0.2 10^3/uL (0.0-0.6); ABSOLUTE LYMPHOCYTES (AUTO) 3.5 10^3/uL (0.5-4.7); ABSOLUTE MONOCYTES (AUTO) 0.7 10^3/uL (0.1-1.4); BASOPHILS % (AUTO) 0.8 % (0-2); EOSINOPHILS % (AUTO) 1.4 % (0-6); HEMATOCRIT 40.9 % (36.0-47.0); HEMOGLOBIN 14.2 g/dL (12.0-15.5); LYMPHOCYTES % (AUTO) 27.8 % (13-45); MEAN CORPUSCULAR HEMOGLOBIN 29.8 pg (27.0-33.4); MEAN CORPUSCULAR HGB CONC 34.7 g/dL (32.0-36.0); MEAN CORPUSCULAR VOLUME 86 fl (80-97); MONOCYTES % (AUTO) 5.8 % (3-13); PLATELET COUNT 328 10^3/uL (150-450); RED BLOOD COUNT 4.76 10^6/uL (3.72-5.28); SEGMENTED NEUTROPHILS % (AUTO) 64.2 % (42-78); TOTAL CELLS COUNTED % (AUTO) 100 %; WHITE BLOOD COUNT 12.5 10^3/uL (4.0-10.5)
[2017-06-14 03:17] LABS: APPEARANCE,URINE CLEAR; BILIRUBIN,URINE NEGATIVE (NEGATIVE); COLOR,URINE YELLOW; GLUCOSE, URINE NEGATIVE (NEGATIVE); KETONES,URINE NEGATIVE (NEGATIVE); LEUKOCYTE ESTERASE,URINE NEGATIVE (NEGATIVE); NITRITE,URINE NEGATIVE (NEGATIVE); PROTEIN,URINE NEGATIVE (NEGATIVE); UROBILINOGEN,URINE NEGATIVE mg/dL (<2.0)
[2017-06-14 03:32] LABS: CALCIUM 9.6 mg/dL (8.4-10.2)
[2017-06-14 03:33] LABS: ANION GAP 14 (5-19); BLOOD UREA NITROGEN 10 mg/dL (7-20); CARBON DIOXIDE 26 mmol/L (22-30); CHLORIDE 104 mmol/L (98-107); GLUCOSE 90 mg/dL (75-110); SODIUM 143.7 mmol/L (137-145)
== END 2017-06-14 04:20 | disposition home or self-care (01) ==
LOC: ER 02:19
DX: R10.30 Lower abdominal pain, unspecified (principal); R10.2 Pelvic and perineal pain; Z88.0 Allergy status to penicillin; Z88.2 Allergy status to sulfonamides
CPT/HCPCS: 99284; 96372; 36415; 85025; 80048; 81001; J1885